=== PATIENT | male | born 1990 | race Caucasian/White ===

== ENCOUNTER 2021-04-09 07:45 | Inpatient (IN) | payer MEDICAID, SELFPAY ==
[2021-04-09 07:54] VITALS: BP 137/82; PULSE 75; RESP 18; TEMP 36.6; O2SAT 100; BMI 27.1
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
[2021-04-09 09:15] LABS: Basophils # 0.1 10^3/uL (0.0-0.1); Basophils % 0.7 %; Eosinophils % 0.4 %; Hematocrit 41.6 % (42.0-52.0); Hemoglobin 13.9 g/dL (11.7-16.6); Lymphocytes # 1.9 10^3/uL (0.8-4.8); Lymphocytes % 21.3 %; Mean Corpuscular HGB Conc 33.4 g/dL (30.0-36.0); Mean Corpuscular Volume 92.9 fl (80-94); Mean Platelet Volume 9.6 fL (7.4-10.4); Monocytes # 0.7 10^3/uL (0.2-0.9); Monocytes % 7.2 %; Neutrophils # 6.28 10^3/uL (1.8-7.7); Neutrophils % 70.1 %; Nucleated Red Blood Cells % 0 %; Platelet Count 263 10^3/cmm (130-400); Red Blood Count 4.48 10^6/uL (4.1-5.3)
[2021-04-09 09:38] LABS: Anion Gap 11.7 (5-19); Blood Urea Nitrogen 23 mg/dL (6-20); Calcium 8.3 mg/dL (8.5-10.5); Carbon Dioxide 23 mmol/L (22-29); Chloride 105 mmol/L (98-107); Glomerular Filtration Rate 113.5 mL/min (90-130); Glucose 94 mg/dL (65-115); Osmolality Calculated 285 mOsm/kg (285-295); Potassium 3.7 mmol/L (3.5-5.1); Salicylate 0.5 mg/dL (3-10); Sodium 136 mmol/L (136-145)
[2021-04-09 09:42] LABS: Acetaminophen < 5.0 ug/mL (10-30)
[2021-04-09 12:38] VITALS: BP 123/70; PULSE 82; RESP 14; TEMP 36.8; O2SAT 98
[2021-04-09 12:43] VITALS: BP 123/70; PULSE 82; RESP 14; TEMP 36.8
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
--- NOTE | 2021-04-09 13:52 | P.SS_ITS ---
Short Stay Summary Providers Date of Admit/Discharge: 04/11/21 Attending Provider: Miguel Gonzalez MD Primary Care Provider: Michael Ferrer Chief Complaint: SI Home Meds/Allergies Home Medications and Allergies Home Medications Medication Instructions Recorded Confirmed Type No Known Home Medications 04/09/21 04/09/21 History Allergies Allergy/AdvReac Type Severity Reaction Status Date / Time No Known Allergies Allergy Unverified 04/09/21 09:40 Vitals/I&O/Wt Last Vital Signs Temp 98.2 F 04/09/21 12:43 Pulse 82 04/09/21 12:43 Resp 14 04/09/21 12:43 BP 123/70 04/09/21 12:43 Pulse Ox 98 04/09/21 12:38 Weight last 48 hrs Weight 88.451 kg Diagnoses at Discharge Discharge Diagnosis (1) Adjustment disorder with depressed mood: Status: Acute (2) Chronic schizoaffective disorder: Status: Chronic Discharge Plan Discharge Patient Disposition: Home Condition: Stable Prescriptions: No Action No Known Home Medications RF: 0 Referrals: [facility] [Other] - 7-10 days (Call to schedule an initial appointment to establish care. ) Michael Ferrer MD [Primary Care Provider] - Patient Instructions: Opioid Safety Coding Level of Care Code Acute Production Designer for g Fwd Diagnoses Adjustment disorder with depressed mood F43.21 Chronic schizoaffective disorder F25.9
[2021-04-09 17:45] VITALS: BP 121/72; PULSE 75; RESP 18; TEMP 36.4; O2SAT 99
[2021-04-09 21:14] VITALS: RESP 18
[2021-04-10] MEDS: acetaminophen 325 mg Tablet 650 MG PO (07:19)
[2021-04-10 14:00] VITALS: BP 114/66; PULSE 72; RESP 16; TEMP 36.2; O2SAT 100
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
[2021-04-10 20:54] VITALS: BP 95/59; PULSE 76; RESP 20; TEMP 36.6; O2SAT 99
[2021-04-11 02:39] LABS: THC Screen Urine Positive (Negative)
[2021-04-11 02:40] LABS: Amphetamines Screen Urine Positive (Negative); Barbiturates Screen Urine Negative (Negative); Benzodiazepines Screen Urine Negative (Negative); Cocaine Screen Urine Negative (Negative); Opiate Screen Urine Negative (Negative); PCP Screen Urine Negative (Negative)
[2021-04-11] MEDS: acetaminophen 325 mg Tablet 650 MG PO ×2 (04:26→14:05)
[2021-04-11 06:00] VITALS: BP 103/74; PULSE 98; RESP 20; TEMP 36.8; O2SAT 98
[2021-04-11 09:07] VITALS: BP 103/74; PULSE 98; RESP 20; TEMP 36.8; O2SAT 98
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
== END 2021-04-11 14:20 | disposition home or self-care (01) | DRG 885 ==
LOC: ER 11:27 → NP 11:41
PROVIDERS: Admitting Provider Psychiatry & Neurology Child & Adolescent Psychiatry; Emergency Provider Emergency Medicine; PCP Family Medicine; Visit Provider Psychiatry & Neurology Child & Adolescent Psychiatry
DX: F25.9 Schizoaffective disorder, unspecified (principal); R45.851 Suicidal ideations; F32.9 Major depressive disorder, single episode, unspecified; F43.21 Adjustment disorder with depressed mood; F17.210 Nicotine dependence, cigarettes, uncomplicated
CPT/HCPCS: 80048; 80306; 80307; 85025; 99285; G0378

== ENCOUNTER 2022-03-02 01:02 | Inpatient (IN) | payer MEDICAID, SELFPAY ==
--- NOTE | 2022-03-02 01:11 | W.ED.PSYCHS ---
HPI - Psych General: Chief Complaint: Psychiatric Symptoms Stated Complaint: general Time Seen by Provider: 03/02/22 01:03 Source: patient and police Mode of arrival: other (police) Limitations: no limitations History of Present Illness: 31-year-old male brought here by police for acute psychosis. Patient was trying to break into cars in a house tonight that he thought was his but was not. Patient appears to be under the influence of methamphetamine does have a history of drug abuse. Patient has flight of ideas here are very pressured speech and makes no sense when he is speaking. He denies any injuries no other medical complaints at this time he is not suicidal or homicidal Associated symptoms: Reports visual hallucinations and delusions Review of Systems Const: Denies: fever(s), chills, body aches or change in appetite Eyes: Denies: blurry vision or eye discomfort ENMT: Denies: throat pain or dental pain Card: Denies: chest pain Resp: Denies: dyspnea GI: Denies: abdominal pain, nausea, vomiting or diarrhea : Denies: dysuria Musc: Denies: neck pain or back pain Skin/Breast: Denies: rash Neuro: Denies: headache(s) Psych: Reports: difficulty concentrating and visual hallucinations Ward/Lymph: Denies: easy bruising All/Imm: Denies: urticaria PFSH ED PFSH: Medical History (Updated 03/02/22 @ 03:30 by Noel Roe MD) Chronic schizoaffective disorder Social History (Updated 03/02/22 @ 01:12 by Noel Roe MD) Substance/Drug Use: current Physical Exam Const: COMMON NORMALS: patient oriented x3 GENERAL APPEARANCE: anxious and disheveled HENMT: COMMON NORMALS: normocephalic and atraumatic HEAD & SCALP: normocephalic and atraumatic Eye: COMMON NORMALS: Equal, round and reactive pupils present and EOMs intact bilaterally PUPIL: Yes Equal, round and reactive pupils present Neck/C-Spine: COMMON NORMALS: full ROM and supple Chest: COMMONS NORMALS: normal inspection of the chest and normal palpation of entire chest wall Resp: COMMON NORMALS: normal respiratory effort, No retractions, No use of accessory muscles and clear to auscultation bilaterally AUSCULTATION: clear to auscultation bilaterally Cardio: COMMON NORMALS: regular rate, regular rhythm and No murmurs present (Cardio) RATE: regular rate RHYTHM: regular rhythm GI: COMMON NORMALS: Normal to inspection, nondistended, normoactive bowel sounds present, Soft to palpation, non-tender and no masses PALPATION: Yes Soft to palpation Extremity: COMMON NORMALS: normal to inspection and full ROM Neuro: COMMON NORMALS: patient oriented x3, moves all extremities and no focal motor deficits Psych: ACTIVITY/MOTOR BEHAVIOR: Yes psychomotor agitation SPEECH: Yes rapid MOOD & AFFECT: Yes anxious THOUGHT CONTENT: Yes delusions and Yes Hallucination(s) present Skin: COMMON NORMALS: no rashes or lesions noted and no wounds GENERAL SKIN EXAM: no rashes or lesions noted Course Vital Signs: Vital signs: Vital Signs Pulse Rate 89 03/02/22 03:25 Respiratory Rate 16 03/02/22 03:25 Blood Pressure 131/74 03/02/22 03:25 Pulse Oximetry 99 03/02/22 03:25 Oxygen Delivery Me thod 03/02/22 03:25 MDM - Psych Medical Decision Making Patient presents here with acute psychosis likely drug-induced I spoke to psychiatrist patient is medically cleared and will admit at this time. Lab Data : 03/02/22 02:00 03/02/22 02:00 Laboratory Results WBC 12.6 10^3/uL (4.0-10.0) H 03/02/22 02:00 RBC 4.18 10^6/uL (4.1-5.3) 03/02/22 02:00 Hgb 13.0 g/dL (11.7-16.6) 03/02/22 02:00 Hct 39.2 % (42.0-52.0) L 03/02/22 02:00 MCV 93.8 fl (80-94) 03/02/22 02:00 MCH 31.1 pg (28.0-34.0) 03/02/22 02:00 MCHC 33.2 g/dL (30.0-36.0) 03/02/22 02:00 RDW 12.4 % (12.1-15.1) 03/02/22 02:00 Plt Count 283 10^3/cmm (130-400) 03/02/22 02:00 MPV 10.0 fL (7.4-10.4) 03/02/22 02:00 Neut % (Auto) 84.6 % 03/02/22 02:00 Lymph % (Auto) 9.4 % 03/02/22 02:00 [place] % (Auto) 4.9 % 03/02/22 02:00 Eos % (Auto) 0.1 % 03/02/22 02:00 Baso % (Auto) 0.5 % 03/02/22 02:00 Neut # (Auto) 10.66 10^3/uL (1.8-7.7) H 03/02/22 02:00 Lymph # (Auto) 1.2 10^3/uL (0.8-4.8) 03/02/22 02:00 [place] # (Auto) 0.6 10^3/uL (0.2-0.9) 03/02/22 02:00 Eos # (Auto) 0.0 10^3/uL (0.0-0.8) 03/02/22 02:00 Baso # (Auto) 0.1 10^3/uL (0.0-0.1) 03/02/22 02:00 Nucleated RBC % (auto) 0 % 03/02/22 02:00 Nucleated RBCs # 0.0 /100WBC 03/02/22 02:00 Sodium 149 mmol/L (136-145) H 03/02/22 02:00 Potassium 3.8 mmol/L (3.5-5.1) 03/02/22 02:00 Chloride 113 mmol/L (98-107) H 03/02/22 02:00 Carbon Dioxide 24 mmol/L (22-29) 03/02/22 02:00 Anion Gap 15.8 (5-19) 03/02/22 02:00 BUN 29 mg/dL (6-20) H 03/02/22 02:00 Creatinine 1.3 mg/dL (0.7-1.2) H 03/02/22 02:00 GFR Calculation 64.4 mL/min (90-130) L 03/02/22 02:00 Glucose 92 mg/dL (65-115) 03/02/22 02:00 Calculated Osmolality 313 mOsm/kg (285-295) H 03/02/22 02:00 Calcium 9.6 mg/dL (8.5-10.5) 03/02/22 02:00 Total Bilirubin 1.1 mg/dL (0.15-1.2) 03/02/22 02:00 AST 68 U/L (0-40) H 03/02/22 02:00 ALT 59 U/L (0-41) H 03/02/22 02:00 Alkaline Phosphatase 85 IU/L (40-130) 03/02/22 02:00 Total Protein 7.0 g/dL (6.6-8.7) 03/02/22 02:00 Albumin 4.3 g/dL (3.5-5.2) 03/02/22 02:00 Globulin 2.7 g/dL (1.3-4.6) 03/02/22 02:00 Salicylates < 0.3 mg/dL (3-10) L 03/02/22 02:00 Acetaminophen < 5.0 ug/mL (10-30) L 03/02/22 02:00 Ethyl Alcohol < 10 mg/dL (0-10) 03/02/22 02:00 Discharge Plan Discharge Patient Disposition: Admitted As Inpatient Clinical Impression: Acute psychosis, Drug-induced psychotic disorder Coding Level of Care Code ED Salesperson Wigs for Dana Fwd Exam Comprehensive
[2022-03-02 01:22] VITALS: BMI 20.9
[2022-03-02] MEDS: midazolam 1 mg/mL INJ 2 mL 2 MG IM ×2 (02:09→03:02)
[2022-03-02 02:30] LABS: Basophils # 0.1 10^3/uL (0.0-0.1); Basophils % 0.5 %; Eosinophils % 0.1 %; Hematocrit 39.2 % (42.0-52.0); Lymphocytes # 1.2 10^3/uL (0.8-4.8); Lymphocytes % 9.4 %; Mean Corpuscular HGB Conc 33.2 g/dL (30.0-36.0); Mean Corpuscular Hemoglobin 31.1 pg (28.0-34.0); Mean Corpuscular Volume 93.8 fl (80-94); Monocytes # 0.6 10^3/uL (0.2-0.9); Monocytes % 4.9 %; Neutrophils # 10.66 10^3/uL (1.8-7.7); Neutrophils % 84.6 %; Nucleated Red Blood Cells % 0 %; Platelet Count 283 10^3/cmm (130-400); Red Blood Count 4.18 10^6/uL (4.1-5.3); Red Cell Distribution Width 12.4 % (12.1-15.1); White Blood Count 12.6 10^3/uL (4.0-10.0)
[2022-03-02] MEDS: ziprasidone 20 mg/mL SDV IM (03:03)
[2022-03-02 03:25] VITALS: BP 131/74; PULSE 89; RESP 16; O2SAT 99
[2022-03-02 03:28] LABS: Alanine Aminotransferase 59 U/L (0-41); Albumin Level 4.3 g/dL (3.5-5.2); Alkaline Phosphatase 85 IU/L (40-130); Anion Gap 15.8 (5-19); Aspartate Amino Transferase 68 U/L (0-40); Blood Urea Nitrogen 29 mg/dL (6-20); Calcium 9.6 mg/dL (8.5-10.5); Carbon Dioxide 24 mmol/L (22-29); Chloride 113 mmol/L (98-107); Globulin 2.7 g/dL (1.3-4.6); Glomerular Filtration Rate 64.4 mL/min (90-130); Glucose 92 mg/dL (65-115); Osmolality Calculated 313 mOsm/kg (285-295); Potassium 3.8 mmol/L (3.5-5.1); Sodium 149 mmol/L (136-145); Total Bilirubin 1.1 mg/dL (0.15-1.2)
[2022-03-02 03:31] LABS: Acetaminophen < 5.0 ug/mL (10-30); Alcohol Level < 10 mg/dL (0-10); Creatinine Clr Calc Pharmacy 84.3068; Salicylate < 0.3 mg/dL (3-10)
[2022-03-02 05:03] VITALS: BP 114/71; PULSE 73; RESP 15; O2SAT 99
--- NOTE | 2022-03-02 07:12 | PC.NURSE ---
Report from NIGHAT Osorio. Patient resting with eyes closed, sitter at bedside.
[2022-03-02 07:30] LABS: Amphetamines Screen Urine Positive (Negative); Barbiturates Screen Urine Negative (Negative); Benzodiazepines Screen Urine Negative (Negative); Cocaine Screen Urine Negative (Negative); Opiate Screen Urine Negative (Negative); PCP Screen Urine Negative (Negative); THC Screen Urine Positive (Negative)
[2022-03-02 07:58] VITALS: BP 120/59; PULSE 84; RESP 18; O2SAT 99
--- NOTE | 2022-03-02 12:11 | PC.NURSE ---
Report called to NIGHAT Sanders. Patient changed out into paper scrubs and escorted to floor with tech and security.
[2022-03-02 13:08] VITALS: BP 125/60; PULSE 106; RESP 18; TEMP 36.8; O2SAT 98
--- NOTE | 2022-03-02 13:09 | XR_ITS ---
WS: [id number] Exam: XR foot LT min 3V* [id number] Date/Time of Exam: 03/02/2022 1:09 PM Reason For Exam: Patient states pain and injury. Findings: The foot was examined in multiple views and reveals no fractures or displacements of bone. No bony a nomalies are noted. The bony elements are in adequate alignment. The joint spaces are smooth and eq uidistant. XR/XR foot LT min 3V* [id number] IMPRESSION: Negative left foot.
[2022-03-02 14:00] VITALS: BP 125/60; PULSE 106; RESP 18; TEMP 36.8; O2SAT 98
[2022-03-02] MEDS: OLANZapine 5 mg ODT PO (15:07)
[2022-03-02] MEDS: haloperidol inj 5 mg/mL INJ 1 mL IM (16:40)
[2022-03-02] MEDS: diphenhydrAMINE 50 mg/mL SDV 1mL IM (16:41)
[2022-03-02] MEDS: LORazepam 2 mg/mL INJ 1 mL IM (16:41)
[2022-03-02 20:20] VITALS: RESP 16
--- NOTE | 2022-03-02 20:20 | PC.NURSE ---
patient refused vitals..
[2022-03-03 06:00] VITALS: BP 158/86; PULSE 78; RESP 20; TEMP 36.5; O2SAT 91
[2022-03-03] MEDS: acetaminophen 325 mg Tablet 650 MG PO (08:50)
[2022-03-03] MEDS: hyDROXYzine 25 mg Capsule 50 MG PO (08:51)
--- NOTE | 2022-03-03 10:10 | PC.NURSE ---
INM BED RESTING AROUSES TO VOICE. PT STATES HE IS HAVING BACK PAIN /, TYLENOL WAS GIVEN ORDERED. PT WAS GIVEN VISTARIL 50 MG FOR AXIETY. DENIES SI/HI AND AVH AT THIS. PT PRESENTS WITH DEPRESSED AND FLAT AFFECT. ALL QUESTIONS ANSWERED AND SUPPORT VOICED.
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
[2022-03-03] MEDS: OLANZapine 5 mg ODT PO (11:21)
[2022-03-03 14:00] VITALS: BP 136/72; PULSE 76; RESP 16; TEMP 36; O2SAT 98
[2022-03-03] MEDS: haloperidol 5 mg Tablet PO (16:56)
--- NOTE | 2022-03-03 16:56 | PC.NURSE ---
PRN MEDICATIONS PT AT [facility] REQUESTING THAT SHOT THEY GAVE ME YESTERDAY, IT WAS GOOD. EDUCATION PROVIDED THAT THE SHOT IS FOR EMERGENCY USE ONLY BUT THIS RN WOULD BE HAPPY TO GET HIM SOMETHING ELSE FOR ANXIETY. PT HAS RECEIVED VISTARIL AND ZYDIS EARLIER THROUGH THE SHIFT. ADMINISTERED HALDOL 5 MG ORDERED FOR INCREASED ANXIETY AND AGITATION.
[2022-03-03 20:11] VITALS: BP 114/61; PULSE 80; RESP 14; TEMP 36.6; O2SAT 100
--- NOTE | 2022-03-04 00:27 | PC.NURSE ---
Pt awake at this time requesting a snack. He is also c/o a buring and itching rash to inner aspect of left upper arm and left side of upper chest, Pt believe this to be poison leo Hospitalist was informed, she will see Pt in the morning. A consult order was placed as well.
--- NOTE | 2022-03-04 05:55 | W.PM.NPUPNS ---
Subjective NPU Subjective: Patient presents today continuing to the resistant to interview and resistant to participating in this process. He continues to report that we have no grounds or right to hold him and that he wants to leave. We discussed him having a different doctor tomorrow but that the process would not change any be to participate in evaluation for safety for discharge from his 96-hour hold. Mental Status Exam MSE Comments: This is a well-nourished well-developed white male in hospital scrubs with adequate grooming and limited eye contact. No abnormal movements except for mild psychomotor agitation. Uncooperative with exam in mild distress. Speech was normal rate and volume. Mood described as OK, affect irritable. Thought process organized, thought content: patient denies suicidal or homicidal ideation, there were no delusions reported or but paranoid and persecutory delusions noted or at the very least referential ideas around these thoughts, he denied any auditory or visual hallucinations. Attention and concentration were intact and memory appeared unreliable and likely on purpose, but none were formally tested. He?s alert and oriented times person and place. Insight and judgment appeared impaired and impulse control appeared limited versus impaired Vitals/I&O/Wt Last Vital Signs Temp 97.8 F 03/03/22 20:11 Pulse 80 03/03/22 20:11 Resp 14 03/03/22 20:11 BP 114/61 03/03/22 20:11 Pulse Ox 100 03/03/22 20:11 O2 Del Method 03/03/22 14:00 Data NPU : 03/02/22 02:00 03/02/22 02:00 A&P Assessment and plan (1) Acute psychosis: Status: Acute (2) Drug-induced psychotic disorder: Status: Acute (3) Chronic schizoaffective disorder: Status: Chronic (4) Methamphetamine use disorder, severe: Status: Acute (5) Cannabis use disorder: Status: Acute Plan This is a 31-year-old white male with a significant history of addiction and psychosis likely drug-induced as well as aggression who presented to the hospital on a 96-hour hold but is essentially resistant to treatment and interactions. 1. Continue current medication. We will explore previous medications and try to engage about starting medication to help with psychosis and irritability. 2. Continue every 15 minute checks for safety. 3. Encourage individual, group and milieu therapies. 4. Encourage sober living treatment after discharge at the highest level of care to which he is willing to commit. 5. We will monitor for safety for consideration of early discontinuation of the 96-hour hold. Involuntary Hold Information 96 Hour Hold: 96 Hour Involuntary Admission: Yes 96 Hour Hold Ending Date: 03/08/22 96 Hour Hold Ending Time: 12:30 Attestations NPU Medical Necessity Statement*: Inpatient hospitalization is medically necessary and the clinically appropriate intervention at this time. We will monitor medication to make changes as indicated. Likely length of stay 2-4 days. Coding Level of Care Code Acute Mold Repair Technician for [facility] Fwd Diagnoses Acute psychosis F23 Drug-induced psychotic disorder F19.959 Chronic schizoaffective disorder F25.9 Methamphetamine use disorder, severe F15.20 Cannabis use disorder F12.90
[2022-03-04 06:00] VITALS: BP 133/80; PULSE 83; RESP 16; TEMP 36.6; O2SAT 100
--- NOTE | 2022-03-04 07:22 | P.CONIM_ITS ---
Providers/Reason For Consult Consulting Physician/Specialty*: Eliazar Wesley MD Reason for Consult*: generalized rash Requesting Physician: Dr. Eber Cuevas Attending Physician: Eber Cuevas MD Primary Care Provider: Michael Ferrer History of Present Illness History of Present Illness Eric Ramsay is a 31 year old male currently [facility] for acute psychosis and polysubstance abuse. Medicine services consulted because of a generalized maculopapular rash that he has noted all over his body. Patient st ates that the rash started 3 to 4 days prior to admission and is still present. It is itchy. He reports that he got into some poison leo prior to onset of the rash. He is afebrile. Denies any other symptoms such as fever cough chest pain dyspnea palpitations nausea vomiting or diarrhea. No joint swelling or tenderness. No headache, photophobia or neck stiffness. Review of Systems General: Reports: 10 or more systems reviewed and unremarkable except in HPI and below Const: Denies: fever(s), chills, body aches, change in appetite, change in weight, malaise, night sweats, diaphoresis, change in sleep pattern, daytime sleepiness or snoring Eyes: Denies: change in vision, blurry vision, photophobia, eye discomfort or eye discharge ENMT: Denies: throat pain, enlarged tonsils, hoarseness, mouth pain, oral sores, dry mouth, tinnitus, nasal congestion or post nasal drip Card: Denies: chest pain, palpitations, irregular heart rhythm, edema, swelling of feet/ankles, lightheadedness, syncope, pre-syncope, dyspnea on exertion, orthopnea, leg pain with exertion or acrocyanosis Resp: Denies: dyspnea, productive cough, non-productive cough, wheezing, stridor, pain on inspiration, change in phlegm color, hemoptysis or chest congestion GI: Denies: abdominal pain, nausea, vomiting, hematemesis, coffee ground emesis, dysphagia, heartburn, diarrhea, constipation, bloating, GI cramping, change in bowel habits, pain on defecation, hematochezia or melena : Denies: flank pain, difficulty urinating, dysuria, urinary frequency, urinary urgency, urinary hesitancy, urinary dribbling, difficulty starting urination, change in urine stream, nocturia or hematuria Musc: Denies: neck pain, back pain, extremity pain, joint pain, joint swelling, joint redness, joint stiffness or limited range of motion Neuro: Denies: headache(s), numbness in extremities, weakness in extremities, sensory changes, lack of coordination, difficulty walking, frequent falls, dizziness, vertigo, confusion, Slurred speech present, difficulty communicating thoughts or seizure-like activity Psych: Denies: anxiety, depression, mood swings, panic attacks, hopelessness or irritability Endo: Denies: polyuria, polydipsia, tired all the time, cold intolerance, excessive sweating, flushing or heat intolerance Ward/Lymph: Denies: easy bruising or easy bleeding All/Imm: Denies: tongue swelling, facial swelling or acute wheezing Medications/Allergies Home Medications Medication Instructions Recorded Confirmed Last Taken Type Soma 250 mg PO DAILY PRN Muscle Spasm 03/02/22 03/02/22 Unknown History Thorazine 100 mg PO DAILY 03/02/22 03/02/22 Unknown History clonazepam 1 mg tablet (Klonopin) 1 mg PO 1XD 03/02/22 03/02/22 Unknown History Allergies Allergy/AdvReac Type Severity Reaction Status Date / Time No Known Allergies Allergy Verified 03/02/22 08:54 Current Medications Generic Name Dose Route Start Last Admin Trade Name Daveq PRN Reason Stop Dose Admin Acetaminophen 650 mg 03/02/22 13:08 03/03/22 08:50 Acetaminophen 325 Mg Tablet PO 650 mg Q4H PRN Administration MILD PAIN Diphenhydramine HCl 50 mg 03/02/22 13:08 03/02/22 16:41 Diphenhydramine 50 Mg/Ml Sdv 1ml IM 50 mg Q4H PRN Administration Severe Aggression Haloperidol 5 mg 03/02/22 13:08 03/03/22 16:56 Haloperidol 5 Mg Tablet PO 5 mg Q4H PRN Administration AGITATION Haloperidol Lactate 5 mg 03/02/22 13:08 03/02/22 16:40 Haloperidol Inj 5 Mg/Ml Inj 1 Ml IM 5 mg Q4H PRN Administration Severe Aggression Hydroxyzine Pamoate 50 mg 03/02/22 13:08 03/03/22 08:51 Hydroxyzine 25 Mg Capsule PO 50 mg Q6H PRN Administration ANXIETY Lorazepam 2 mg 03/02/22 13:08 03/02/22 16:41 Lorazepam 2 Mg/Ml Inj 1 Ml IM 2 mg Q4H PRN Administration Severe Aggression Olanzapine 5 mg 03/02/22 13:08 03/03/22 11:21 Olanzapine 5 Mg Odt PO 5 mg Q4H PRN Administration Agitation/Psychosis PFSH Acute PFSH: Medical History Chronic schizoaffective disorder Social History Smoking and tobacco status: current every day smoker Substance/Drug Use: current Vitals/I&O/Wt Last Vital Signs Temp 98 F 03/04/22 06:00 Pulse 83 03/04/22 06:00 Resp 16 03/04/22 06:00 BP 133/80 03/04/22 06:00 Pulse Ox 100 03/04/22 06:00 O2 Del Method 03/03/22 14:00 Weight last 48 hrs Weight 80.83 kg Physical Exam Narrative: EXAM NARRATIVE: General: No acute distress, AO x3 HEENT: PERRLA, pupils bilaterally equal and reactive Chest:equal good air entry bilaterally, CVS: S1-S2 regular, no murmurs, no tachycardia, no gallops, no rubs Abdomen: Soft, nontender, no organomegaly, bowel sounds present, morbidly obese Neuro: No focal deficits, no facial deformity, AO x3, power 5/5 in all limbs Extremities: Maculopapular rash present over anterior chest, back, bilateral upper extremities and right lower extremity. Patient noted to be itching over this rash. Data : 03/02/22 02:00 03/02/22 02:00 A&P Assessment and plan (1) Dermatitis: Appearance of the itchy rash, lack of constitutional signs and symptoms, being afebrile, history of getting into poison leo appeared to be most consistent with poison leo dermatitis. Trial of a short course of prednisone 20 mg p.o. daily for 5 days and monitor for continued improvement. Less suspicious of tickborne illness at this time. Please call if no significant improvement and/or clinical deterioration is noted with a trial of steroids. Status: Acute Consult Attestations Medical Necessity Statement: Per admitting psychiatry note Coding Level of Care Code Acute Analytical Data Miner for g Fwd Diagnoses Dermatitis L30.9
[2022-03-04] MEDS: hyDROXYzine 25 mg Capsule 50 MG PO ×3 (09:27→23:03)
[2022-03-04] MEDS: predniSONE 20 mg Tablet PO (09:27)
[2022-03-04 14:00] VITALS: BP 124/76; PULSE 96; RESP 18; TEMP 36.8; O2SAT 98
[2022-03-04] MEDS: diphenhydrAMINE 50 mg/mL SDV 1mL IM (18:29)
[2022-03-04 21:00] VITALS: BP 134/55; PULSE 73; RESP 17; TEMP 36.7; O2SAT 99
[2022-03-04] MEDS: trazodone 50 mg Tablet PO (23:04)
--- NOTE | 2022-03-04 23:04 | NUR.SHIFT ---
pt calm and cooperative. A&OX4. DENIES SI/HI/AVH AT THIS TIME. PT HAS RASH OVER FULL TORSO, LEGS AND ARMS. STARTED ON PREDNISONE THIS MORNING AND STATES IT IS A LITTLE BETTER BUT IT IS STARTING TO ITCH AGAIN. PRN VISTARIL GIVEN.
[2022-03-05 06:00] VITALS: BP 117/61; PULSE 69; RESP 16; TEMP 36.6; O2SAT 99
[2022-03-05] MEDS: predniSONE 20 mg Tablet PO (09:33)
[2022-03-05] MEDS: hyDROXYzine 25 mg Capsule 50 MG PO ×2 (09:53→16:34)
[2022-03-05 13:23] VITALS: BP 126/72; PULSE 81; RESP 17; TEMP 36.6; O2SAT 98
--- NOTE | 2022-03-05 14:33 | W.PM.NPUPNS ---
Subjective NPU Subjective: Patient is a 31 year old white male presents on 96 with acute agitation and hx of schizophrenia who continued to be insistent about returning home and states that he simply wishes to go home now that he is evaluated, Patient did not wish to consider any medication to treat anger and irritability but requested soma and klonopin. Mental Status Exam MSE Comments: This is a well-nourished well-developed white male in hospital scrubs with adequate grooming and limited eye contact. No abnormal movements with brooding and continued palpable psychomotor agitation. Uncooperative with exam in mild distress. Speech was normal rate and volume. Mood described as OK, affect irritable and mood incongruent. Thought process : superficial, but linear. thought content: patient denies suicidal or homicidal ideation, but he appeared quite paranoid, he denied any auditory or visual hallucinations. Attention and concentration were intact and memory appeared deliberately poor. He?s alert and oriented times person and place. Insight and judgment appeared impaired and impulse control appeared impaired. Vitals/I&O/Wt Last Vital Signs Temp 98.1 F 03/05/22 20:33 Pulse 78 03/05/22 20:33 Resp 18 03/05/22 20:33 BP 127/86 03/05/22 20:33 Pulse Ox 99 03/05/22 20:33 O2 Del Method 03/05/22 13:23 Weight last 48 hrs Weight 80.83 kg Data NPU : 03/02/22 02:00 03/02/22 02:00 A&P Assessment and plan (1) Acute psychosis: Status: Acute (2) Drug-induced psychotic disorder: Status: Acute (3) Chronic schizoaffective disorder: Status: Chronic (4) Methamphetamine use disorder, severe: Status: Acute (5) Cannabis use disorder: Status: Acute Plan This is a 31-year-old white male with a significant history of addiction and psychosis likely drug-induced as well as aggression who presented to the hospital on a 96-hour hold but is essentially resistant to treatment and interactions. 1. We will explore previous medications and try to engage about starting medication to help with psychosis and irritability. zyprexa prn for agitation. 2. Continue every 15 minute checks for safety. 3. Encourage individual, group and milieu therapies. 4. Encourage sober living treatment after discharge at the highest level of care to which he is willing to commit. 5. We will monitor for safety for consideration of early discontinuation of the 96-hour hold. Involuntary Hold Information 96 Hour Hold: 96 Hour Involuntary Admission: Yes 96 Hour Hold Ending Date: 03/08/22 96 Hour Hold Ending Time: 12:30 Attestations NPU Medical Necessity Statement*: Inpatient hospitalization is medically necessary and the clinically appropriate intervention at this time. We will monitor medication to make changes as indicated. Likely length of stay 3-5 days. 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
[2022-03-05] MEDS: nicotine 2 mg Gum BUCCAL (16:15)
[2022-03-05 20:33] VITALS: BP 127/86; PULSE 78; RESP 18; TEMP 36.7; O2SAT 99
[2022-03-05] MEDS: trazodone 50 mg Tablet PO ×2 (20:53→22:37)
[2022-03-06 06:00] VITALS: BP 126/76; PULSE 98; RESP 18; TEMP 36.9; O2SAT 97
[2022-03-06] MEDS: OLANZapine 5 mg ODT 10 MG PO ×2 (06:15→16:44)
[2022-03-06] MEDS: predniSONE 20 mg Tablet PO (10:13)
[2022-03-06] MEDS: diphenhydrAMINE 50 mg/mL SDV 1mL IM (13:55)
[2022-03-06 14:00] VITALS: BP 128/87; PULSE 93; RESP 16; TEMP 36.6; O2SAT 98
--- NOTE | 2022-03-06 14:15 | W.PM.NPUPNS ---
Subjective NPU Subjective: Patient is a 31 year old white male presents on 96 with acute agitation and hx of psychosis and reports that he is no longer suicidal or homicidal and is not having any hallucinations. Patient reports no depressed mood, no manic symptoms endorsed. He reports that he will call his adult probation officer when he is discharged. He has been redirectable and attending groups. No acts of aggression noted. Mental Status Exam MSE Comments: This is a well-nourished well-developed white male in hospital scrubs with adequate grooming and limited eye contact. No abnormal movements noted and continued palpable psychomotor agitation. Uncooperative with exam in mild distress. Speech was normal rate and volume. Mood described as OK, affect irritable and mood incongruent. Thought process : superficial, but linear. thought content: patient denies suicidal or homicidal ideation, but he appeared quite paranoid, he denied any auditory or visual hallucinations. Attention and concentration were intact and memory appeared deliberately poor. He?s alert and oriented times person and place. Insight was feeble and judgment appeared impaired and impulse control appeared poor. Vitals/I&O/Wt Last Vital Signs Temp 97.9 F 03/06/22 19:52 Pulse 82 03/06/22 19:52 Resp 21 H 03/06/22 19:52 BP 117/62 03/06/22 19:52 Pulse Ox 98 03/06/22 19:52 O2 Del Method 03/06/22 19:52 Data NPU : 03/02/22 02:00 03/02/22 02:00 A&P Assessment and plan (1) Impulse control disorder: Status: Acute (2) Antisocial personality disorder: Status: Acute (3) Methamphetamine use disorder, severe: Status: Acute (4) Acute psychosis: Status: Acute (5) Drug-induced psychotic disorder: Status: Acute (6) Chronic schizoaffective disorder: Status: Chronic (7) Cannabis use disorder: Status: Acute Plan This is a 31-year-old white male with a significant history of addiction and psychosis likely drug-induced as well as aggression who presented to the hospital on a 96-hour hold but is essentially resistant to treatment and interactions. 1. Likely refer for outpatient tx. 2. Continue every 15 minute checks for safety. 3. Encourage individual, group and milieu therapies. 4. Encourage sober living treatment after discharge at the highest level of care to which he is willing to commit. 5. We will monitor for safety for consideration of early discontinuation of the 96-hour hold. Involuntary Hold Information 96 Hour Hold: 96 Hour Involuntary Admission: Yes 96 Hour Hold Ending Date: 03/08/22 96 Hour Hold Ending Time: 12:30 Attestations NPU Medical Necessity Statement*: Inpatient hospitalization is medically necessary and the clinically appropriate intervention at this time. We will monitor medication to make changes as indicated. Likely length of stay 1-2days. 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
[2022-03-06] MEDS: hydrocortisone 1% cream 28 gm 1 APPLIC TOPICAL (14:58)
[2022-03-06] MEDS: acetaminophen 325 mg Tablet 650 MG PO (17:14)
[2022-03-06 19:52] VITALS: BP 117/62; PULSE 82; RESP 21; TEMP 36.6; O2SAT 98
[2022-03-06] MEDS: trazodone 50 mg Tablet PO (21:01)
[2022-03-06] MEDS: hyDROXYzine 25 mg Capsule 50 MG PO (21:01)
--- NOTE | 2022-03-06 21:32 | PC.NURSE ---
PT PRESENTS CALM AND COOPERATIVE SINCE MOVED TO 170. PT WAS HOT IN PREVIOUS ROOM AND BECAME IRRITABLE. ONCE HE WAS MOVED, HE WAS VERY GRATEFUL AND FRIENDLY. PT REPORTS STILL ITCHY FROM RASH, BUT IT IS DOING MUCH BETTER. NOT ITCHY BEFORE. DENIES SI/HI/AVH AT [facility]. REPORTS BM TODAY AND GOOD APPETITE AND SLEEP PATTERN. PT TOOK MEDS PRESCRIBED AND PRN GIVEN FOR SLEEP AND ANTIHISTAMINE FOR RASH .
--- NOTE | 2022-03-06 22:45 | PC.NURSE ---
2300 OLANZAPINE NOT ADMINISTERED BECAUSE IT STATES NOT TO EXCEED 20 MG DAILY DOSE AND THIS DOSE WOULD HAVE MADE IT 30 MG.
[2022-03-07 06:00] VITALS: BP 105/66; PULSE 99; RESP 20; TEMP 36.6; O2SAT 99
[2022-03-07] MEDS: OLANZapine 5 mg ODT 10 MG PO ×2 (07:04→14:19)
[2022-03-07] MEDS: predniSONE 20 mg Tablet PO (08:46)
[2022-03-07 14:00] VITALS: BP 121/68; PULSE 98; RESP 16; TEMP 36.7; O2SAT 98
--- NOTE | 2022-03-07 15:34 | P.NPUDS_ITS ---
Diagnoses at Discharge Discharge Diagnosis (1) Impulse control disorder: Status: Acute (2) Antisocial personality disorder: Status: Acute (3) Methamphetamine use disorder, severe: Status: Resolved (4) Acute psychosis: Status: Resolved (5) Drug-induced psychotic disorder: Status: Resolved (6) Chronic schizoaffective disorder: Status: Chronic (7) Cannabis use disorder: Status: Acute Reason for Visit Reason for Visit: suicidal ideation Brief History: Eric Ramsay is a 31 year old male who presented to the ED with the following report: Chief Complaint: Psychiatric Symptoms Stated Complaint: general Time Seen by Provider: 03/02/22 01:03 Source: patient and police Mode of arrival: other (police) Limitations: no limitations History of Present Illness:?? 31-year-old male brought here by police for acute psychosis.? Patient was trying to break into cars in a house tonight that he thought was his but was not.? Patient appears to be under the influence of methamphetamine does have a history of drug abuse.? Patient has flight of ideas here are very pressured speech and makes no sense when he is speaking.? He denies any injuries no other medical complaints at this time he is not suicidal or homicidal Associated symptoms: Reports visual hallucinations and delusions. He was admitted to the neuropsychiatric unit for definitive treatment of those issues.? He presents today continuing the general gestalt of his first hours of admission and emergency room time with irritability and lack of willingness to engage.? Very entitled and narcissistic as he sat down in his room and tries to convince the nurses that he is incapable of getting things himself tried having brought to him and suggesting that there is not a problem.? I attempted to engage noting that he had been on this unit back in April of last year and he endorsed that he did not recall the events of that admission.? Discussed with him that he is on a 96-hour hold which reports he felt was unfair to justified in a attempt by for the police to prevent him from establishing that they are corrected.? I explained to him the process by which the 96-hour hold gives discharge especially with going to be before their hold is up.? He continued not to engage with them as I was leaving the room he suggested a daily he should start his old medication which include Klonopin and Soma.? Discussed the fact that we would review his history and see if previous medications would be appropriate. Per his 04/09/2021 [facility] inpatient psychiatric evaluation: History of Present Illness Eric Ramsay is a 30 year old male with schizoaffective disorder who has had recent depression with passive suicidal ideation after his girlfriend kicked him out of their RV.? The ED note states: [30]yo patient w/ hx of depression and bipolar disorder BIBA for acute suicidal ideation. Patient was kicked out of RV by his girlfriend. He has been living in the [facility] since. Patient reports he lost os his will to live. Denies any suicidal plans. On arrival, the patient is AAOx3 and cooperative with my evaluation. No focal complaints of chest pain, shortness of breath, palpitations, N/V, focal GI/ complaints. +SI currently. No complaints of hallucinations. The patient says that he has been depressed off and on over the last few months, each time that he and his girlfriend have a fight.? He rates his average severity of depression as 2/10 in severity.? He said he became depressed in the past few days when his girlfriend and he drove to [place] to see one of her friends, but she kicked him out of the car.? He denies having felt suicidal.? He does not feel he would be better off .? He says he has never tried to kill himself.? He says he feels hopeful about the future, because it has a lot of possibilities. ? He is feeling good about himself and feels that he can make things happen, i.e., he does not feel helpless.? He said he wanted to come into the hospital a few hours ago, but now that he has had a chance to take a nap and eat a sandwich, he is feeling much better.? He has talked with his mother about staying with her in [place], [place].? She is willing for him to stay there.? He feels he can be safe at home and he wants to leave.? His plan is to go to work tomorrow and reconnect with his providers there. The patient denies auditory and visual hallucinations and says he has no paranoia or ideas of persecution.? He denies using alcohol and drugs and says he smokes about 1 pack of cigarettes per week.? He says he has been hospitalized here before several times.? It looks like his last admission was 08/27/2017, and the note from that visit states: Mr. Ramsay is a 26-year-old male with a previous history of schizoaffective disorder bipolar type, who presented to the [facility] ED with a complaint of suicidal ideation, along with worsening symptoms of depression, and agitation.? He denied experiencing hallucinations.? To admit to experiencing increased anxiety and sleep difficulties.? Patient has not taking his medications for the past week as reports that they were stolen.? He presented with suicidal thoughts with a plan to hang himself.? His symptom presentation was described as moderate. 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 UDS +THC.? As he presents today, he states that he essentially came to the hospital because he didn't have his meds. Would not be more specific about this. Reports some depressed mood, but denies suicidal ideation. No symptoms consistent with angelica, hypomania, or psychosis. Slept well last night. He is actually the most interactive I've seen in months. Psychiatric history: As above. Substance use history: As above. Family history: Patient denies mental health or addiction issues on either side of the family and denies suicide attempts or completions in the family. Psychosocial history: The patient says he grew up and has lived most of his life in [place].? He says he graduated from high school.? He has never been or had kids.? 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 Legal history:? No legal difficulties. Medical history:? Denies any significant medical history. Hospital Course Hospital Course During the hospitalization, patient had routine laboratory studies which were within normal limits except for few outliers.? Additionally there was a general medical evaluation which was also within normal limits and revealed no new acute processes. Discharge Summary: At the time of discharge, lethality was denied and psychosis was resolving.? Mood and anxiety were well managed.? Patient endorsed a plan to avoid all drugs of abuse and follow-up with the aftercare recommendations of the treatment team.? Patient was evaluated and deemed to be absent credible lethality, and had achieved the maximum benefit from an inpatient hospitalization, so was discharged as he refused medications throughout the hospital stay. Involuntary Hold Information 96 Hour Hold: 96 Hour Involuntary Admission: Yes 96 Hour Hold Ending Date: 03/08/22 96 Hour Hold Ending Time: 12:30 Mental Status Exam MSE Comments: This is a well-nourished well-developed white male in hospital scrubs with adequate grooming and limited eye contact. No abnormal movements noted and continued palpable psychomotor agitation. Uncooperative with exam in mild distress. Speech was normal rate and volume. Mood described as OK, affect irritable and mood incongruent. Thought process : superficial, but linear. thought content: patient denies suicidal or homicidal ideation, but he appeared quite paranoid, he denied any auditory or visual hallucinations. Attention and concentration were grossly intact. He?s alert and oriented times person and place. Insight was feeble and judgment appeared poor and impulse control appeared poor. Discharge Data Studies Completed and Pending: Completed Studies During Hospitalization Category Date Time Status XR foot LT min 3V * [id number] Routine Exams 03/02/22 13:09 Completed Radiology Impressions Foot X-Ray 03/02/22 13:09 IMPRESSION: Negative left foot. Laboratory Results WBC 12.6 10^3/uL (4.0 -10.0) H 03/02/22 02:00 RBC 4.18 10^6/uL (4.1 -5.3) 03/02/22 02:00 Hgb 13.0 g/dL (11.7-1 6.6) 03/02/22 02:00 Hct 39.2 % (42.0-52.0 ) L 03/02/22 02:00 MCV 93.8 fl (80-94) 03/02/22 02:00 MCH 31.1 pg (28.0-34. 0) 03/02/22 02:00 MCHC 33.2 g/dL (30.0-3 6.0) 03/02/22 02:00 RDW 12.4 % (12.1-15.1 ) 03/02/22 02:00 Plt Count 283 10^3/cmm (130 -400) 03/02/22 02:00 MPV 10.0 fL (7.4-10.4 ) 03/02/22 02:00 Neut % (Auto) 84.6 % 03/02/22 02:00 Lymph % (Auto) 9.4 % 03/02/22 02:00 [place] % (Auto) 4.9 % 03/02/22 02:00 Eos % (Auto) 0.1 % 03/02/22 02:00 Baso % (Auto) 0.5 % 03/02/22 02:00 Neut # (Auto) 10.66 10^3/uL (1. 8-7.7) H 03/02/22 02:00 Lymph # (Auto) 1.2 10^3/uL (0.8- 4.8) 03/02/22 02:00 [place] # (Auto) 0.6 10^3/uL (0.2- 0.9) 03/02/22 02:00 Eos # (Auto) 0.0 10^3/uL (0.0- 0.8) 03/02/22 02:00 Baso # (Auto) 0.1 10^3/uL (0.0- 0.1) 03/02/22 02:00 Nucleated RBC % (a uto) 0 % 03/02/22 02:00 Nucleated RBCs # 0.0 /100WBC 03/02/22 02:00 Sodium 149 mmol/L (136-1 45) H 03/02/22 02:00 Potassium 3.8 mmol/L (3.5-5 .1) 03/02/22 02:00 Chloride 113 mmol/L (98-10 7) H 03/02/22 02:00 Carbon Dioxide 24 mmol/L (22-29) 03/02/22 02:00 Anion Gap 15.8 (5-19) 03/02/22 02:00 BUN 29 mg/dL (6-20) H 03/02/22 02:00 Creatinine 1.3 mg/dL (0.7-1. 2) H 03/02/22 02:00 GFR Calculation 64.4 mL/min (90-1 30) L 03/02/22 02:00 Glucose 92 mg/dL (65-115) 03/02/22 02:00 Calculated Osmolal ity 313 mOsm/kg (285- 295) H 03/02/22 02:00 Calcium 9.6 mg/dL (8.5-10 .5) 03/02/22 02:00 Total Bilirubin 1.1 mg/dL (0.15-1 .2) 03/02/22 02:00 AST 68 U/L (0-40) H 03/02/22 02:00 ALT 59 U/L (0-41) H 03/02/22 02:00 Alkaline Phosphata se 85 IU/L (40-130) 03/02/22 02:00 Total Protein 7.0 g/dL (6.6-8.7 ) 03/02/22 02:00 Albumin 4.3 g/dL (3.5-5.2 ) 03/02/22 02:00 Globulin 2.7 g/dL (1.3-4.6 ) 03/02/22 02:00 Salicylates < 0.3 mg/dL (3-10 ) L 03/02/22 02:00 Urine Opiates Scre en Negative ng/mL (N egative) 03/02/22 06:13 Acetaminophen < 5.0 ug/mL (10-3 0) L 03/02/22 02:00 Ur Barbiturates Sc reen Negative ng/mL (N egative) 03/02/22 06:13 Ur Phencyclidine S crn Negative ng/mL (N egative) 03/02/22 06:13 Ur Amphetamines Sc reen Positive ng/mL (N egative) H 03/02/22 06:13 U Benzodiazepines Scrn Negative ng/mL (N egative) 03/02/22 06:13 Urine Cocaine Scre en Negative ng/mL (N egative) 03/02/22 06:13 U Marijuana (THC) Screen Positive ng/mL (N egative) H 03/02/22 06:13 Ethyl Alcohol < 10 mg/dL (0-10) 03/02/22 02:00 Vitals: Last Vital Signs Temp 98.1 F 03/07/22 14:00 Pulse 98 03/07/22 14:00 Resp 16 03/07/22 14:00 BP 121/68 03/07/22 14:00 Pulse Ox 98 03/07/22 14:00 O2 Del Method 03/07/22 14:00 Discharge Plan Discharge Patient Disposition: Home Condition: Stable Prescriptions: Discontinued Thorazine 100 mg PO DAILY Soma 250 mg PO DAILY PRN (Reason: Muscle Spasm) clonazepam [Klonopin] 1 mg Tablet 1 mg PO 1XD Discharge Orders: Discharge Order (Routine); Ordered 03/07/22 Ordered By: Reyes Carlos Referrals: [facility] [Outside] Michael Ferrer MD [Primary Care Provider] - Discharge Diet: Advance as tolerated Discharge Activity: Resume usual activity Patient Instructions: Methamphetamine Abuse, Depression (DC), Cannabis Use Disorder (DC), Help Prevent Suicide (DC), Anxiety (DC), Psychotic Disorder (DC), Suicide Prevention (DC), Opioid Safety Discharge Attestations NPU Time Spent in Discharge Care*: less than 30 min Specific Discharge Activities: Specific discharge activities: educating patient and documenting/other paperwork Status at Discharge: Cognitive status at discharge: cognitively intact , Behavioral status at discharge: cooperative , Coding Level of Care Code Established Pt Acute Chg FW DC note Patient Type Established History Problem Focused Exam Problem Focused Medical Decision Making Straight Forward Diagnoses Impulse control disorder F63.9 Antisocial personality disorder F60.2 Methamphetamine use disorder, severe F15.20 Acute psychosis F23 Drug-induced psychotic disorder F19.959 Chronic schizoaffective disorder F25.9 Cannabis use disorder F12.90
[2022-03-07 15:38] VITALS: BP 121/68; PULSE 98; RESP 16; TEMP 36.7; O2SAT 98
== END 2022-03-07 16:57 | disposition home or self-care (01) | DRG 897 ==
LOC: ER 03:30 → ER IP 06:05 → NP 11:50
PROVIDERS: Admitting Provider Psychiatry & Neurology Psychiatry; Emergency Provider Emergency Medicine; PCP Family Medicine; Visit Provider Psychiatry & Neurology Psychiatry
DX: F15.259 Other stimulant dependence with stimulant-induced psychotic disorder, unspecified (principal); F25.0 Schizoaffective disorder, bipolar type; Z59.00 Homelessness unspecified; Z63.0 Problems in relationship with spouse or partner; F17.210 Nicotine dependence, cigarettes, uncomplicated; Z81.8 Family history of other mental and behavioral disorders; F12.90 Cannabis use, unspecified, uncomplicated; L23.7 Allergic contact dermatitis due to plants, except food; F63.9 Impulse disorder, unspecified; F60.2 Antisocial personality disorder
CPT/HCPCS: 73630; 80053; 80306; 80307; 85025; 96372; 97165; 99285; J1200; J1630; J2060; J2250; J3486; J7512

== ENCOUNTER 2023-09-05 23:40 | Emergency (ER) | payer SELFPAY ==
[2023-09-05 23:44] VITALS: BP 122/76; PULSE 88; RESP 20; TEMP 36.6; O2SAT 97; BMI 27.1
--- NOTE | 2023-09-06 00:02 | ED.C_ITS ---
HPI - Psych 2 General: Chief Complaint: Psychiatric Symptoms Stated Complaint: MHE Time Seen by Provider: 09/05/23 23:49 History of Present Illness: Patient was well found wandering down in [place] and when security brought him to the registration desk patient stated he needed to be checked in because he feels crazy. Patient says he wants to detox off meth and pills. He states he is a daily user of meth and last used yesterday. Patient immediately asked for a sandwich and water. It is noted that the patient is homeless. Patient denies any suicidal or homicidal ideations. Review of Systems 2 General: Reports: 10 or more systems reviewed and unremarkable except in HPI and below PFSH ED 2 PFSH: Medical History Chronic schizoaffective disorder Social History Smoking and tobacco/nicotine status: current every day tobacco/nicotine user Substance/Drug Use: current Physical Exam 2 Const: COMMON NORMALS: no acute distress, average body habitus, patient oriented x3, no limitations, healthy appearing, alert and well nourished HENMT: COMMON NORMALS: normocephalic, hearing grossly normal bilaterally, external ears normal, Normal external nose present, moist oral mucous membranes and oropharynx normal; head/scalp not atraumatic (Multiple superficial abrasions on forehead and scalp) HEAD & SCALP: normocephalic; not atraumatic (Multiple superficial abrasions on forehead and scalp) NOSE: N ormal external nose present EXTERNAL EAR: Yes external ears normal Neck/C-Spine: COMMON NORMALS: full ROM, no lymphadenopathy, supple, no meningeal signs, no JVD and Thyroid normal THYROID: Thyroid normal Chest: COMMONS NORMALS: normal inspection of the chest and normal palpation of entire chest wall Resp: COMMON NORMALS: normal respiratory effort, No retractions, No use of accessory muscles and clear to auscultation bilaterally AUSCULTATION: clear to auscultation bilaterally Cardio: COMMON NORMALS: no JVD, regular rate, regular rhythm, S1 normal heart sound present, S2 normal heart sound present, No gallops present (Cardio), No clicks present (Cardio), No murmurs present (Cardio) and No rub (Cardio) R ATE: regular rate RHYTHM: regular rhythm HEART SOUNDS: S1 normal heart sound present and S2 normal heart sound present GI: COMMON NORMALS: Normal to inspection, nondistended, normoactive bowel sounds present, Soft to palpation, non-tender and No hepatosplenomegaly present PALPATION: Yes Soft to palpation and Yes No hepatosplenomegaly present Neuro: COMMON NORMALS: patient oriented x3 SENSORIUM/ORIENTATION: Yes alert MENINGEAL SIGNS: Yes no meningeal signs Course 2 Vital Signs: Vital signs: Vital Signs Temperature 98 F 09/05/23 23:44 Pulse Rate 74 09/06/23 05:04 Respiratory Rate 16 09/06/23 05:04 Blood Pressure 132/64 09/06/23 05:04 Pulse Oximetry 97 09/06/23 05:04 Oxygen Delivery Me thod Room Air 09/05/23 23:44 MDM - Psych Medical Decision Making Patient had labs drawn to include CBC CMP UA UDS acetaminophen salicylates ethanol. Is noted patient is positive for amphetamines benzos and THC, patient's liver enzymes are slightly elevated. These findings was discussed with the patient. Is also discussed that we do not do inpatient rehab and at this point we have not met admission criteria. It is suggested that patient go to [facility] or the crisis center and they might build point him in direction of an outpatient rehab. Patient be discharged from the ER. Differential Diagnosis Unlikely acute psychosis, chronic schizophrenia, suicidal ideation, bipolar disorder, depression, drug-induced psychotic disorder or acute anxiety Medical Records I reviewed the patient's medical records. Lab Data I reviewed the patient's lab results. 09/06/23 00:02 09/06/23 00:02 Laboratory Results WBC 5.23 10^3/uL (3.29-11.43) 09/06/23 00:02 RBC 4.87 10^6/uL (3.85-5.65) 09/06/23 00:02 Hgb 15.20 g/dL (11.27-16.99) 09/06/23 00:02 Hct 45.4 % (37-53) 09/06/23 00:02 MCV 93.2 fl (82-101) 09/06/23 00:02 MCH 31.2 pg (27-33) 09/06/23 00:02 MCHC 33.5 g/dL (30-55) 09/06/23 00:02 RDW 12.3 % (12.1-15.1) 09/06/23 00:02 Plt Count 255 10^3/cmm (157-399) 09/06/23 00:02 MPV 9.0 fL (7.4-10.4) 09/06/23 00:02 Neut % (Auto) 43.7 % 09/06/23 00:02 Lymph % (Auto) 43.4 % 09/06/23 00:02 [place] % (Auto) 9.0 % 09/06/23 00:02 Eos % (Auto) 2.9 % 09/06/23 00:02 Baso % (Auto) 0.8 % 09/06/23 00:02 Neut # (Auto) 2.29 10^3/uL (1.8-7.7) 09/06/23 00:02 Lymph # (Auto) 2.3 10^3/uL (0.8-4.8) 09/06/23 00:02 [place] # (Auto) 0.5 10^3/uL (0.2-0.9) 09/06/23 00:02 Eos # (Auto) 0.2 10^3/uL (0.0-0.8) 09/06/23 00:02 Baso # (Auto) 0.0 10^3/uL (0.0-0.1) 09/06/23 00:02 Nucleated RBC % (auto) 0 % 09/06/23 00:02 Nucleated RBCs # 0.0 /100WBC 09/06/23 00:02 Sodium 139 mmol/L (136-145) 09/06/23 00:02 Potassium 4.0 mmol/L (3.5-5.1) 09/06/23 00:02 Chloride 104 mmol/L (98-107) 09/06/23 00:02 Carbon Dioxide 27 mmol/L (22-29) 09/06/23 00:02 Anion Gap 12.0 (5-19) 09/06/23 00:02 BUN 22 mg/dL (6-20) H 09/06/23 00:02 Creatinine 1.1 mg/dL (0.7-1.2) 09/06/23 00:02 GFR Calculation 77.6 mL/min (90-130) L 09/06/23 00:02 Glucose 87 mg/dL (65-115) 09/06/23 00:02 Calculated Osmolality 291 mOsm/kg (285-295) 09/06/23 00:02 Calcium 8.8 mg/dL (8.5-10.5) 09/06/23 00:02 Total Bilirubin 2.2 mg/dL (0.15-1.2) H 09/06/23 00:02 AST 132 U/L (0-40) H 09/06/23 00:02 ALT 76 U/L (0-41) H 09/06/23 00:02 Alkaline Phosphatase 71 U/L (40-130) 09/06/23 00:02 Total Protein 6.3 g/dL (6.6-8.7) L 09/06/23 00:02 Albumin 3.9 g/dL (3.5-5.2) 09/06/23 00:02 Globulin 2.4 g/dL (1.3-4.6) 09/06/23 00:02 Urine Color Yellow (Yellow) 09/06/23 00:57 Urine Appearance Clear (CLEAR) 09/06/23 00:57 Urine pH 5 (5-7) 09/06/23 00:57 Ur Specific [place] 1.025 (1.005-1.030) 09/06/23 00:57 Urine Protein Trace (Negative) 09/06/23 00:57 Urine Glucose (UA) Norm (Normal) 09/06/23 00:57 Urine Ketones 1+ (Negative) H 09/06/23 00:57 Urine Blood Neg (Negative) 09/06/23 00:57 Urine Nitrate Negative (Negative) 09/06/23 00:57 Urine Bilirubin Neg (Negative) 09/06/23 00:57 Urine Urobilinogen 1 mg/dL (Negative) H 09/06/23 00:57 Ur Leukocyte Esterase Negative (Negative) 09/06/23 00:57 Urine RBC 0-4 /hpf (0-2) H 09/06/23 00:57 Urine WBC None /hpf (0-5) 09/06/23 00:57 Ur Squamous Epith Cells None /hpf (0-5) 09/06/23 00:57 Amorphous Sediment Not Reportable 09/06/23 00:57 Urine Bacteria 1+ /hpf (NONE) H 09/06/23 00:57 Salicylates < 0.3 mg/dL (3-10) L 09/06/23 00:02 Urine Opiates Screen Negative ng/mL (Negative) 09/06/23 00:57 Acetaminophen < 5.0 ug/mL (10-30) L 09/06/23 00:02 Ur Barbiturates Screen Negative ng/mL (Negative) 09/06/23 00:57 Ur Phencyclidine Scrn Negative ng/mL (Negative) 09/06/23 00:57 Ur Amphetamines Screen Positive ng/mL (Negative) H 09/06/23 00:57 U Benzodiazepines Scrn Positive ng/mL (Negative) H 09/06/23 00:57 Urine Cocaine Screen Negative ng/mL (Negative) 09/06/23 00:57 U Marijuana (THC) Screen Positive ng/mL (Negative) H 09/06/23 00:57 Ethyl Alcohol < 10 mg/dL (0-10) 09/06/23 00:02 No radiology studies performed this visit Discharge Plan Discharge Patient Disposition: Home Clinical Impression: Polysubstance abuse, Elevated liver enzymes Condition: Stable Discharge Orders: Discharge ED (Routine); Ordered 09/06/23 Ordered By: Dyllan Melgar Patient Instructions: Polysubstance Use Disorder (ED) Activity Restrictions/Additional Instructions: Your lab work performed in ER showed you are positive for amphetamines, benzodiazepines, and THC. Your blood work also showed your liver enzymes are slightly elevated. At this time you do not meet the criteria for inpatient treatment. It is suggested that you go to [facility] or the crisis center as they may be able to help point you to an outpatient treatment center. Otherwise follow- up with your family practice physician for further evaluation and treatment of your elevated liver enzymes. Coding Level of Care Code ED Community Living Specialist for Dana Vargas
[2023-09-06 00:09] LABS: Basophils % 0.8 %; Eosinophils # 0.2 10^3/uL (0.0-0.8); Eosinophils % 2.9 %; Hematocrit 45.4 % (37-53); Lymphocytes # 2.3 10^3/uL (0.8-4.8); Lymphocytes % 43.4 %; Mean Corpuscular HGB Conc 33.5 g/dL (30-55); Mean Corpuscular Hemoglobin 31.2 pg (27-33); Mean Corpuscular Volume 93.2 fl (82-101); Monocytes # 0.5 10^3/uL (0.2-0.9); Neutrophils # 2.29 10^3/uL (1.8-7.7); Neutrophils % 43.7 %; Nucleated Red Blood Cells % 0 %; Platelet Count 255 10^3/cmm (157-399); Red Blood Count 4.87 10^6/uL (3.85-5.65); Red Cell Distribution Width 12.3 % (12.1-15.1); White Blood Count 5.23 10^3/uL (3.29-11.43)
[2023-09-06 00:24] LABS: Alanine Aminotransferase 76 U/L (0-41); Albumin Level 3.9 g/dL (3.5-5.2); Alkaline Phosphatase 71 U/L (40-130); Aspartate Amino Transferase 132 U/L (0-40); Blood Urea Nitrogen 22 mg/dL (6-20); Calcium 8.8 mg/dL (8.5-10.5); Carbon Dioxide 27 mmol/L (22-29); Chloride 104 mmol/L (98-107); Globulin 2.4 g/dL (1.3-4.6); Glomerular Filtration Rate 77.6 mL/min (90-130); Glucose 87 mg/dL (65-115); Osmolality Calculated 291 mOsm/kg (285-295); Sodium 139 mmol/L (136-145); Total Bilirubin 2.2 mg/dL (0.15-1.2); Total Protein 6.3 g/dL (6.6-8.7)
[2023-09-06 00:25] LABS: Acetaminophen < 5.0 ug/mL (10-30); Alcohol Level < 10 mg/dL (0-10); Salicylate < 0.3 mg/dL (3-10)
[2023-09-06 01:25] LABS: Add Urine Microscopic? YES; Bilirubin Urine Neg (Negative); Blood Urine Neg (Negative); Glucose Urine UA Norm (Normal); Ketones Urine 1+ (Negative); Leukocyte Esterase Urine Negative (Negative); Nitrate Urine Negative (Negative); Protein Urine Trace (Negative); RBC Urine 0-4 /hpf (0-2); Specific Gravity, Urine 1.025 (1.005-1.030); Urine Appearance Clear (CLEAR); Urine Color Yellow (Yellow); Urobilinogen Urine 1 mg/dL (Negative); pH Urine 5 (5-7)
[2023-09-06 01:26] LABS: Add Urine Culture? No; Amphetamines Screen Urine Positive (Negative); Bacteria Urine 1+ /hpf; Barbiturates Screen Urine Negative (Negative); Benzodiazepines Screen Urine Positive (Negative); Cocaine Screen Urine Negative (Negative); Opiate Screen Urine Negative (Negative); PCP Screen Urine Negative (Negative); THC Screen Urine Positive (Negative)
[2023-09-06 05:04] VITALS: BP 132/64; PULSE 74; RESP 16; O2SAT 97
== END 2023-09-06 05:05 | disposition home or self-care (01) ==
PROVIDERS: Emergency Provider Emergency Medicine
DX: F19.10 Other psychoactive substance abuse, uncomplicated (principal); R74.8 Abnormal levels of other serum enzymes; Z72.0 Tobacco use
CPT/HCPCS: 80053; 80306; 80307; 81001; 85025; 99283

== ENCOUNTER 2025-04-02 08:32 | Inpatient (IN) | payer MEDICAID, SELFPAY ==
[2025-04-02 08:35] VITALS: BP 135/77; PULSE 81; RESP 20; TEMP 36.3; O2SAT 98
--- NOTE | 2025-04-02 08:58 | ED.C_ITS ---
Documented by User: PERI Mcgill 04/02/25 09:50 HPI - Psych 2 General: Chief Complaint: Psychiatric Symptoms Stated Complaint: SI Time Seen by Provider: 04/02/25 08:57 Source: patient Mode of arrival: ambulatory Limitations: no limitations History of Present Illness: Patient is a 34-year-old male presents to ED today with a complaint of depression and suicidal ideations. He states he has felt suicidal for several days. States yesterday he attempted to jump off a bridge and a suicide attempt. He is complaining of bilateral foot pain. States he takes medications for anxiety but does not take anything for depression. States he has also had thoughts of wanting to hang himself. MD complaint: suicidal ideation and feels depressed Onset (ago): day(s) Duration: constant History of same: Yes Relieving factors: none Exacerbating factors: none Associated psychiatric symptoms: depression and suicidal ideation Associated symptoms: Reports depression and suicidal ideation; Deny auditory hallucinations, visual hallucinations or homicidal ideation Treatments prior to arrival: none If self harm: admits thoughts of self harm, has plan and has acted on plan Related Data Home Medications ?Medication ?Instructions ?Recorded ?Confirmed clonazepam 0.5 mg tablet (Klonopin) 0.25 - 0.5 mg PO B ID PRN Panic 04/02/25 04/02/25 Attack(S) paroxetine HCl 20 mg tablet (Paxil) 20 mg PO BEDTIME 0 04/02/25 04/02/25 Allergies Allergy/AdvReac Type Severity Reaction Status Date / Time No Known Allergies Allergy Verified 03/02/22 08:54 Review of Systems 2 Const: Denies: fever(s) or chills Card: Denies: chest pain, palpitations, lightheadedness or syncope Resp: Denies: dyspnea GI: Denies: abdominal pain, nausea, vomiting or diarrhea Musc: Reports: extremity pain (bilateral feet) Skin/Breast: Reports: other (laceration plantar R foot); Denies: rash Neuro: Denies: headache(s), numbness in extremities or sensory changes Psych: Reports: anxiety, depression, hopelessness and suicidal ideation; Denies: visual hallucinations, auditory hallucinations or homicidal ideation PFSH ED 2 PFSH: Medical History Dermatitis Cannabis use disorder Chronic schizoaffective disorder Social History Smoking and tobacco/nicotine status: current every day tobacco/nicotine user Substance/Drug Use: current Physical Exam 2 Const: COMMON NORMALS: no acute distress, average body habitus, patient oriented x3, no limitations, healthy appearing, alert and well nourished G ENERAL APPEARANCE: cooperative ORIENTATION/CONSCIOUSNESS: Yes awake, Yes oriented to person, Yes oriented to place and Yes oriented to time Resp: COMMON NORMALS: normal respiratory effort and clear to auscultation bilaterally AUSCULTATION: clear to auscultation bilaterally Cardio: COMMON NORMALS: regular rate and regular rhythm RATE: regular rate RHYTHM: regular rhythm Extremity: COMMON NORMALS: capillary refill normal, no clubbing, cyanosis or edema, no calf tenderness and no pedal edema RIGHT LOWER EXTREMITY: Yes foot & digits LEFT LOWER EXTREMITY: Yes foot & digits OTHER: multiple abrasions to bilateral LEs; he complains of tenderness to bilateral feet/heels; he has a circular flap like laceration to plantar R foot that appears older than yesterday and is not going to be amendable to repair Neuro: COMMON NORMALS: patient oriented x3, moves all extremities, no focal motor deficits and no sensory deficits noted SENSORIUM/ORIENTATION: Yes alert, Yes oriented to person, Yes oriented to place and Yes oriented to time Psych: COMMON NORMALS: mental status grossly normal, Normal thought process present, cooperative, normal affect, speech normal, activity/motor behavior normal, denies hallucinations and denies homicidal ideation APPEARANCE: Yes grossly normal ATTITUDE: Yes calm ACTIVITY/MOTOR BEHAVIOR: Yes appropriate eye contact and No psychomotor agitation SPEECH: Yes normal speech MOOD & AFFECT: Yes euthymic mood THOUGHT PROCESS: Normal thought process present THOUGHT CONTENT: Yes Suicidality present MEMORY/COGNITION: Yes memory grossly intact and Yes cognition grossly intact INSIGHT: Fair insight present (Psych) JUDGEMENT: Fair judgement present (Psych) Skin: NARRATIVE SKIN EXAM: see above TRAUMA: abrasion and laceration Course 2 Consultations: Consultation #1: Dr. Carlos-accepts admission to [facility]PU Vital Signs: Vital signs: Vital Signs Temperature 97.4 F L 04/02/25 08:35 Pulse Rate 81 04/02/25 10:32 Respiratory Rate 20 H 04/02/25 08:35 Blood Pressure 125/67 04/02/25 10:32 Pulse Oximetry 97 04/02/25 10:32 MDM - Psych Medical Decision Making Patient will be placed on a 96-hour hold for treatment of depression/SI. He will be admitted to NPU to Dr. Carlos. Laceration to plantar foot appears old/contaminated-not amendable to repair. Will copiously clean/dress and place him on oral Keflex. Medical Records I reviewed the patient's medical records. Lab Data I reviewed the patient's lab results. 04/02/25 09:10 04/02/25 09:10 Radiology Impressions Foot X-Ray 04/02/25 09:09 IMPRESSION: 1. No acute fracture identified. Laboratory Results WBC 6.21 10^3/uL (3.29-11.43) 04/02/25 09:10 RBC 4.40 10^6/uL (3.85-5.65) 04/02/25 09:10 Hgb 13.80 g/dL (11.27-16.99) 04/02/25 09:10 Hct 42.4 % (37-53) 04/02/25 09:10 MCV 96.4 fl (82-101) 04/02/25 09:10 MCH 31.4 pg (27-33) 04/02/25 09:10 MCHC 32.5 g/dL (30-55) 04/02/25 09:10 RDW 11.9 % (12.1-15.1) L 04/02/25 09:10 Plt Count 193 10^3/cmm (157-399) 04/02/25 09:10 MPV 9.9 fL (7.4-10.4) 04/02/25 09:10 Neut % (Auto) 66.2 % 04/02/25 09:10 Lymph % (Auto) 21.1 % 04/02/25 09:10 [place] % (Auto) 8.4 % 04/02/25 09:10 Eos % (Auto) 3.1 % 04/02/25 09:10 Baso % (Auto) 1.0 % 04/02/25 09:10 Neut # (Auto) 4.12 10^3/uL (1.8-7.7) 04/02/25 09:10 Lymph # (Auto) 1.3 10^3/uL (0.8-4.8) 04/02/25 09:10 [place] # (Auto) 0.5 10^3/uL (0.2-0.9) 04/02/25 09:10 Eos # (Auto) 0.2 10^3/uL (0.0-0.8) 04/02/25 09:10 Baso # (Auto) 0.1 10^3/uL (0.0-0.1) 04/02/25 09:10 Nucleated RBC % (auto) 0 % 04/02/25 09:10 Nucleated RBCs # 0.0 /100WBC 04/02/25 09:10 Sodium 144 mmol/L (136-145) 04/02/25 09:10 Potassium 4.6 mmol/L (3.5-5.1) 04/02/25 09:10 Chloride 110 mmol/L (98-107) H 04/02/25 09:10 Carbon Dioxide 25 mmol/L (22-29) 04/02/25 09:10 Anion Gap 13.6 (5-19) 04/02/25 09:10 BUN 18 mg/dL (6-20) 04/02/25 09:10 Creatinine 0.9 mg/dL (0.7-1.2) 04/02/25 09:10 GFR Calculation 96.6 mL/min (90-130) 04/02/25 09:10 Glucose 116 mg/dL (65-115) H 04/02/25 09:10 Calculated Osmolality 301 mOsm/kg (285-295) H 04/02/25 09:10 Calcium 8.2 mg/dL (8.5-10.5) L 04/02/25 09:10 Total Bilirubin 0.4 mg/dL (0.15-1.2) 04/02/25 09:10 AST 56 U/L (0-40) H 04/02/25 09:10 ALT 45 U/L (0-41) H 04/02/25 09:10 Alkaline Phosphatase 77 U/L (40-130) 04/02/25 09:10 Total Protein 6.2 g/dL (6.6-8.7) L 04/02/25 09:10 Albumin 3.6 g/dL (3.5-5.2) 04/02/25 09:10 Globulin 2.6 g/dL (1.3-4.6) 04/02/25 09:10 Salicylates 1.6 mg/dL (3-10) L 04/02/25 09:10 Urine Opiates Screen Negative ng/mL (Negative) 04/02/25 08:44 Acetaminophen < 5.0 ug/mL (10-30) L 04/02/25 09:10 Ur Barbiturates Screen Negative ng/mL (Negative) 04/02/25 08:44 Ur Phencyclidine Scrn Negative ng/mL (Negative) 04/02/25 08:44 Ur Amphetamines Screen Negative ng/mL (Negative) 04/02/25 08:44 U Benzodiazepines Scrn Positive ng/mL (Negative) H 04/02/25 08:44 Urine Cocaine Screen Negative ng/mL (Negative) 04/02/25 08:44 U Marijuana (THC) Screen Positive ng/mL (Negative) H 04/02/25 08:44 Ethyl Alcohol < 10 mg/dL (0-10) 04/02/25 09:10 All radiology interpretation(s) finalized by discharge Discharge Plan Discharge Patient Disposition: Admitted As Inpatient Clinical Impression: Suicidal ideation Contusion of foot Qualifiers: Encounter type: initial encounter Laterality: right Qualified Code(s): S90.31XA - Contusion of right foot, initial encounter Laceration of plantar aspect of right foot Qualifiers: Encounter type: initial encounter Qualified Code(s): S91.311A - Laceration without foreign body, right foot, initial encounter Condition: Stable Coding Level of Care Code ED Outside Machinist Apprentice for Chg Fwd Documented by User: Augustine Plascencia DO 04/02/25 10:44 HPI - Psych 2 General: Chief Complaint: Psychiatric Symptoms Stated Complaint: SI Time Seen by Provider: 04/02/25 08:57 Related Data Home Medications ?Medication ?Instructions ?Recorded ?Confirmed clonazepam 0.5 mg tablet (Klonopin) 0.25 - 0.5 mg PO B ID PRN Panic 04/02/25 04/02/25 Attack(S) paroxetine HCl 20 mg tablet (Paxil) 20 mg PO BEDTIME 0 04/02/25 04/02/25 Allergies Allergy/AdvReac Type Severity Reaction Status Date / Time No Known Allergies Allergy Verified 03/02/22 08:54 PFS ED 2 PFSH: Medical History Dermatitis Cannabis use disorder Chronic schizoaffective disorder Social History Smoking and tobacco/nicotine status: current every day tobacco/nicotine user Substance/Drug Use: current Course 2 Vital Signs: Vital signs: Vital Signs Temperature 97.4 F L 04/02/25 08:35 Pulse Rate 81 04/02/25 10:32 Respiratory Rate 20 H 04/02/25 08:35 Blood Pressure 125/67 04/02/25 10:32 Pulse Oximetry 97 04/02/25 10:32 [facility] - Psych Medical Decision Making Patient will be placed on a 96-hour hold for treatment of depression/SI. He will be admitted to NPU to Dr. Carlos. Laceration to plantar foot appears old/contaminated-not amendable to repair. Will copiously clean/dress and place him on oral Keflex. Midlevel review Lab Data 04/02/25 09:10 04/02/25 09:10 Radiology Impressions Foot X-Ray 04/02/25 09:09 IMPRESSION: 1. No acute fracture identified. Laboratory Results WBC 6.21 10^3/uL (3.29-11.43) 04/02/25 09:10 RBC 4.40 10^6/uL (3.85-5.65) 04/02/25 09:10 Hgb 13.80 g/dL (11.27-16.99) 04/02/25 09:10 Hct 42.4 % (37-53) 04/02/25 09:10 MCV 96.4 fl (82-101) 04/02/25 09:10 MCH 31.4 pg (27-33) 04/02/25 09:10 MCHC 32.5 g/dL (30-55) 04/02/25 09:10 RDW 11.9 % (12.1-15.1) L 04/02/25 09:10 Plt Count 193 10^3/cmm (157-399) 04/02/25 09:10 MPV 9.9 fL (7.4-10.4) 04/02/25 09:10 Neut % (Auto) 66.2 % 04/02/25 09:10 Lymph % (Auto) 21.1 % 04/02/25 09:10 [place] % (Auto) 8.4 % 04/02/25 09:10 Eos % (Auto) 3.1 % 04/02/25 09:10 Baso % (Auto) 1.0 % 04/02/25 09:10 Neut # (Auto) 4.12 10^3/uL (1.8-7.7) 04/02/25 09:10 Lymph # (Auto) 1.3 10^3/uL (0.8-4.8) 04/02/25 09:10 [place] # (Auto) 0.5 10^3/uL (0.2-0.9) 04/02/25 09:10 Eos # (Auto) 0.2 10^3/uL (0.0-0.8) 04/02/25 09:10 Baso # (Auto) 0.1 10^3/uL (0.0-0.1) 04/02/25 09:10 Nucleated RBC % (auto) 0 % 04/02/25 09:10 Nucleated RBCs # 0.0 /100WBC 04/02/25 09:10 Sodium 144 mmol/L (136-145) 04/02/25 09:10 Potassium 4.6 mmol/L (3.5-5.1) 04/02/25 09:10 Chloride 110 mmol/L (98-107) H 04/02/25 09:10 Carbon Dioxide 25 mmol/L (22-29) 04/02/25 09:10 Anion Gap 13.6 (5-19) 04/02/25 09:10 BUN 18 mg/dL (6-20) 04/02/25 09:10 Creatinine 0.9 mg/dL (0.7-1.2) 04/02/25 09:10 GFR Calculation 96.6 mL/min (90-130) 04/02/25 09:10 Glucose 116 mg/dL (65-115) H 04/02/25 09:10 Calculated Osmolality 301 mOsm/kg (285-295) H 04/02/25 09:10 Calcium 8.2 mg/dL (8.5-10.5) L 04/02/25 09:10 Total Bilirubin 0.4 mg/dL (0.15-1.2) 04/02/25 09:10 AST 56 U/L (0-40) H 04/02/25 09:10 ALT 45 U/L (0-41) H 04/02/25 09:10 Alkaline Phosphatase 77 U/L (40-130) 04/02/25 09:10 Total Protein 6.2 g/dL (6.6-8.7) L 04/02/25 09:10 Albumin 3.6 g/dL (3.5-5.2) 04/02/25 09:10 Globulin 2.6 g/dL (1.3-4.6) 04/02/25 09:10 Salicylates 1.6 mg/dL (3-10) L 04/02/25 09:10 Urine Opiates Screen Negative ng/mL (Negative) 04/02/25 08:44 Acetaminophen < 5.0 ug/mL (10-30) L 04/02/25 09:10 Ur Barbiturates Screen Negative ng/mL (Negative) 04/02/25 08:44 Ur Phencyclidine Scrn Negative ng/mL (Negative) 04/02/25 08:44 Ur Amphetamines Screen Negative ng/mL (Negative) 04/02/25 08:44 U Benzodiazepines Scrn Positive ng/mL (Negative) H 04/02/25 08:44 Urine Cocaine Screen Negative ng/mL (Negative) 04/02/25 08:44 U Marijuana (THC) Screen Positive ng/mL (Negative) H 04/02/25 08:44 Ethyl Alcohol < 10 mg/dL (0-10) 04/02/25 09:10 Discharge Plan Discharge Patient Disposition: Admitted As Inpatient Clinical Impression: Suicidal ideation Contusion of foot Qualifiers: Encounter type: initial encounter Laterality: right Qualified Code(s): S90.31XA - Contusion of right foot, initial encounter Laceration of plantar aspect of right foot Qualifiers: Encounter type: initial encounter Qualified Code(s): S91.311A - Laceration without foreign body, right foot, initial encounter Condition: Stable Coding Level of Care Code ED Outside Machinist Apprentice for Dana Vargas
--- NOTE | 2025-04-02 09:09 | XR_ITS ---
WS: [id number] Exam: XR foot LT min 3V* [id number] Date/Time of Exam: 04/02/2025 9:10 AM Reason For Exam: injury No acute fracture. The joints are preserved. Normal soft tissues. XR/XR foot LT min 3V* [id number] IMPRESSION: 1. No acute fracture identified.
--- NOTE | 2025-04-02 09:09 | XR_ITS ---
WS: [id number] Exam: XR foot RT min 3V* [id number] Date/Time of Exam: 04/02/2025 9:10 AM Reason For Exam: injury No acute fracture. The joints are preserved. No soft tissue foreign bodies. XR/XR foot RT min 3V* [id number] IMPRESSION: 1. No acute fracture or other significant finding.
[2025-04-02 09:16] LABS: Hematocrit 42.4 % (37-53); Hemoglobin 13.80 g/dL (11.27-16.99); Mean Corpuscular HGB Conc 32.5 g/dL (30-55); Mean Corpuscular Hemoglobin 31.4 pg (27-33); Mean Corpuscular Volume 96.4 fl (82-101); Nucleated Red Blood Cells % 0 %; Platelet Count 193 10^3/cmm (157-399); Red Blood Count 4.40 10^6/uL (3.85-5.65); White Blood Count 6.21 10^3/uL (3.29-11.43)
[2025-04-02 09:17] LABS: PCP Screen Urine Negative (Negative)
[2025-04-02 09:34] LABS: Acetaminophen < 5.0 ug/mL (10-30); Alanine Aminotransferase 45 U/L (0-41); Albumin Level 3.6 g/dL (3.5-5.2); Alcohol Level < 10 mg/dL (0-10); Alkaline Phosphatase 77 U/L (40-130); Anion Gap 13.6 (5-19); Aspartate Amino Transferase 56 U/L (0-40); Blood Urea Nitrogen 18 mg/dL (6-20); Calcium 8.2 mg/dL (8.5-10.5); Carbon Dioxide 25 mmol/L (22-29); Chloride 110 mmol/L (98-107); Creatinine Clr Calc Pharmacy 128.8129; Globulin 2.6 g/dL (1.3-4.6); Glucose 116 mg/dL (65-115); Osmolality Calculated 301 mOsm/kg (285-295); Potassium 4.6 mmol/L (3.5-5.1); Salicylate 1.6 mg/dL (3-10); Sodium 144 mmol/L (136-145); Total Protein 6.2 g/dL (6.6-8.7)
--- NOTE | 2025-04-02 09:36 | PC.PHAR ---
Pharmacist Ra verified pts' medications-states pt just released from senior care.
--- NOTE | 2025-04-02 09:40 | PC.NURSE ---
Involuntary 96 hour hold rights read and reviewed with patient. John from security present during read of rights. Patient verbalized understandings and copy of rights given to patient.
--- NOTE | 2025-04-02 10:02 | PC.NURSE ---
PT RIGHT FOOT CLEANED AND DRESSED BY CARE TAKER.
[2025-04-02 10:32] VITALS: BP 125/67; PULSE 81; O2SAT 97
[2025-04-02 11:52] VITALS: BP 120/63; PULSE 89; RESP 17; TEMP 36.6; O2SAT 98
--- NOTE | 2025-04-02 13:08 | P.NPUHP_ITS ---
Providers/Chief Complaint 2 Admitting Physician: Reyes Carlos MD Chief Complaint: SI HPI NPU History of Present Illness Eric Ramsay is a 34 year old male who presented to the emergency department with complaints of having depression and suicidal ideation. Patient had reported that he had jumped off of a bridge 40 feet high in an attempt to harm himself. He had complained of bilateral foot pain. The patient was a poor historian with a limited willingness to engage on interview. He had reported that he had problems with depression and anxiety. He had denied any recent legal troubles despite there being confirmation that he had been in car serrated for a few days and released approximately 2 days ago. He reports that he has problems with anxiety. He reports having intermittent problems with suicidal ideation and describes having problems with being impulsive. He reports no current drug use other than marijuana. He reports that he has problems with memory. He has reported that he had an argument with his girlfriend and reports that he has been homeless for several days. He denies any auditory or visual hallucinations. He had reported previous attempts to try to harm himself including attempts of previously trying to hang himself. Previous records had supported a history of methamphetamine use but the patient reports that he has been sober off of methamphetamines and alcohol for many months. Patient denies any prior history of psychosis. He reports no active legal problems. He reports no change in appetite. He denies any feelings of hopelessness or worthlessness. He reports that he had had an argument with his girlfriend that ultimately led the patient to jump off of a bridge. The patient's foot x-ray was negative for any fractures. He reports that he has been homeless for several weeks but was unable to provide any clear details regarding why he had been homeless. He had reported a past history of panic attacks but did not elaborate on any problems with anxiety otherwise. He denied any manic symptoms. Psychiatric history: He reports a history of multiple inpatient hospitalizations for suicide attempts and suicidal ideation. He had reported that he was receiving his medications from an outpatient provider in [facility]. Substance abuse history: The patient denies any use of illicit substances. Previous records indicate a history of methamphetamine abuse. He has reported routine use of marijuana. Medical history: TTP Allergies: nkda Surgeries: none Medications: klonopin .5mg bid, Paxil 20mg at night Legal History: The patient minimizes any legal history although there has been some evidence of him being placed in long term at least a few times. Family psychiatric history: Denied other than addiction on both sides of the family. Psychosocial history: Patient was raised in [place] and states that he was in foster care by the age of 11 after and both of his parents have been incarcerated secondary to substance abuse related issues. He had minimized any history of childhood trauma. He states that he had graduated from high school. He has never been and has no children. He reports that he is currently homeless and unemployed. 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 Excerpt from NPU Discharge Summary from 03/07/2022 below: Discharge Diagnosis (1) Impulse control disorder: Status: Acute (2) Antisocial personality disorder: Status: Acute (3) Methamphetamine use disorder, severe: Status: Resolved (4) Acute psychosis: Status: Resolved (5) Drug-induced psychotic disorder: Status: Resolved (6) Chronic schizoaffective disorder: Status: Chronic (7) Cannabis use disorder: Status: Acute Reason for Visit suicidal ideation Brief History: Eric Ramsay is a 31 year old male who presented to the ED with the following report: Chief Complaint: Psychiatric Symptoms Stated Complaint: general Time Seen by Provider: 03/02/22 01:03 Source: patient and police Mode of arrival: other (police) Limitations: no limitations History of Present Illness:??31-year-old male brought here by police for acute psychosis.? Patient was trying to break into cars in a house tonight that he thought was his but was not.? Patient appears to be under the influence of methamphetamine does have a history of drug abuse.? Patient has flight of ideas here are very pressured speech and makes no sense when he is speaking.? He denies any injuries no other medical complaints at this time he is not suicidal or homicidal Associated symptoms: Reports visual hallucinations and delusions. He was admitted to the neuropsychiatric unit for definitive treatment of those issues.? He presents today continuing the general gestalt of his first hours of admission and emergency room time with irritability and lack of willingness to engage.? Very entitled and narcissistic as he sat down in his room and tries to convince the nurses that he is incapable of getting things himself tried having brought to him and suggesting that there is not a problem.? I attempted to engage noting that he had been on this unit back in April of last year and he endorsed that he did not recall the events of that admission.? Discussed with him that he is on a 96-hour hold which reports he felt was unfair to justified in a attempt by for the police to prevent him from establishing that they are corrected.? I explained to him the process by which the 96-hour hold gives discharge especially with going to be before their hold is up.? He continued not to engage with them as I was leaving the room he suggested a daily he should start his old medication which include Klonopin and Soma.? Discussed the fact that we would review his history and see if previous medications would be appropriate. Per his 04/09/2021 [facility] inpatient psychiatric evaluation: History of Present Illness Eric Ramsay is a 30 year old male with schizoaffective disorder who has had recent depression with passive suicidal ideation after his girlfriend kicked him out of their RV.? The ED note states: [30]yo patient w/ hx of depression and bipolar disorder BIBA for acute suicidal ideation. Patient was kicked out of RV by his girlfriend. He has been living in the [facility] since. Patient reports he lost os his will to live. Denies any suicidal plans. On arrival, the patient is AAOx3 and cooperative with my evaluation. No focal complaints of chest pain, shortness of breath, palpitations, N/V, focal GI/ complaints. +SI currently. No complaints of hallucinations. The patient says that he has been depressed off and on over the last few months, each time that he and his girlfriend have a fight.? He rates his average severity of depression as 2/10 in severity.? He said he became depressed in the past few days when his girlfriend and he drove to [place] to see one of her friends, but she kicked him out of the car.? He denies having felt suicidal.? He does not feel he would be better off .? He says he has never tried to kill himself.? He says he feels hopeful about the future, because it has a lot of possibilities. ? He is feeling good about himself and feels that he can make things happen, i.e., he does not feel helpless.? He said he wanted to come into the hospital a few hours ago, but now that he has had a chance to take a nap and eat a sandwich, he is feeling much better.? He has talked with his mother about staying with her in [place], [place].? She is willing for him to stay there.? He feels he can be safe at home and he wants to leave.? His plan is to go to work tomorrow and reconnect with his providers there. The patient denies auditory and visual hallucinations and says he has no paranoia or ideas of persecution.? He denies using alcohol and drugs and says he smokes about 1 pack of cigarettes per week.? He says he has been hospitalized here before several times.? It looks like his last admission was 08/27/2017, and the note from that visit states: Mr. Ramsay is a 26-year-old male with a previous history of schizoaffective disorder bipolar type, who presented to the [facility] ED with a complaint of suicidal ideation, along with worsening symptoms of depression, and agitation.? He denied experiencing hallucinations.? To admit to experiencing increased anxiety and sleep difficulties.? Patient has not taking his medications for the past week as reports that they were stolen.? He presented with suicidal thoughts with a plan to hang himself.? His symptom presentation was described as moderate. 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 UDS +THC.? As he presents today, he states that he essentially came to the hospital because he didn't have his meds. Would not be more specific about this. Reports some depressed mood, but denies suicidal ideation. No symptoms consistent with angelica, hypomania, or psychosis. Slept well last night. He is actually the most interactive I've seen in months. Psychiatric history: As above. Substance use history: As above. Family history: Patient denies mental health or addiction issues on either side of the family and denies suicide attempts or completions in the family. Psychosocial history: The patient says he grew up and has lived most of his life in [place].? He says he graduated from high school.? He has never been or had kids.? 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 Legal history:? No legal difficulties. Medical history:? Denies any significant medical history. Hospital Course Hospital Course During the hospitalization, patient had routine laboratory studies which were within normal limits except for few outliers.? Additionally there was a general medical evaluation which was also within normal limits and revealed no new acute processes. Discharge Summary: At the time of discharge, lethality was denied and psychosis was resolving.? Mood and anxiety were well managed.? Patient endorsed a plan to avoid all drugs of abuse and follow-up with the aftercare recommendations of the treatment team.? Patient was evaluated and deemed to be absent credible lethality, and had achieved the maximum benefit from an inpatient hospitalization, so was discharged as he refused medications throughout the hospital stay. Meds NPU Home Medications ?Medication ?Instructions ?Recorded ?Confirmed ?Last Taken ?Type clonazepam 0.5 mg tablet (Klonopin) 0.25 - 0.5 mg PO B ID PRN Panic 04/02/25 04/02/25 04/01/25 History Attack(S) paroxetine HCl 20 mg tablet (Paxil) 20 mg PO BEDTIME 0 04/02/25 04/02/25 04/01/25 History Allergies Allergy/AdvReac Type Severity Reaction Status Date / Time No Known Allergies Allergy Verified 03/02/22 08:54 [facility] NPU 2 PFS: Medical History (Updated 04/02/25 @ 13:31 by Reyes Carlos MD) Dermatitis Cannabis use disorder Chronic schizoaffective disorder Social History Smoking and tobacco/nicotine status: current every day tobacco/nicotine user Substance/Drug Use: current Mental Status Exam 2 MSE Comments: This is a well-nourished male dressed in hospital scrubs with limited grooming and fleeting eye contact. There were numerous abrasions and scratches on his body. There was no evidence of any abnormal involuntary motor movements tics or tremors appreciated. There was some evidence of mild psychomotor agitation. He was superficially cooperative on interview. He appeared somewhat guarded. His speech was normal in rate, rhythm, and prosody. His mood was described as okay. His affect was slightly irritable. His thought process was linear but superficial. His thought content revealed suicidal ideation with no homicidal ideation. He did not appear to be responding to internal stimuli. There was no evidence of delusional thinking. He denied any auditory or visual hallucinations. His attention span appeared fair. His insight is poor his judgment is poor. His impulse control appeared limited. He was alert and oriented to person, place, and time. Vitals/I&O/Wt Last Vital Signs Temp 97.4 F L 04/02/25 08:35 Pulse 81 04/02/25 10:32 Resp 20 H 04/02/25 08:35 BP 125/67 04/02/25 10:32 Pulse Ox 97 04/02/25 10:32 Weight last 48 hrs Weight 83.915 kg Data NPU 04/02/25 09:10 04/02/25 09:10 A&P Assessment and plan 1. Impulse control disorder: 2. Antisocial personality disorder: 3. Drug-induced psychotic disorder: 4. Cannabis use disorder: 5. Depression, unspecified: Plan: This is a 34-year-old white male with a significant history of impulsivity and substance use along with antisocial traits who presented to the hospital on a 96-hour hold after allegedly jumping off bridge with suicidal ideation. 1. Restart paxil and klonopin as prescribed. 2. Initiate 15 minute checks for safety. 3. Encourage individual, group and milieu therapies. 4. Encourage sober living treatment after discharge at the highest level of care to which he is willing to commit. 5. We will monitor for safety for consideration of early discontinuation of the 96-hour hold. PDMP PDMP Reviewed: Not Reviewed Involuntary Hold Information 2 96 Hour Hold: 96 Hour Involuntary Admission: Yes Attestations NPU 2 Medical Necessity Statement*: Inpatient hospitalization is medically necessary and the clinically appropriate intervention at this time. We will monitor medication to make changes as indicated. Patient will be in the hospital for over two midnights. The patient's likely length of stay is 3 to 5 days. Coding Level of Care Code Acute Code for [facility] Fwd Diagnoses Impulse control disorder F63.9 Antisocial personality disorder F60.2 Drug-induced psychotic disorder F19.959 Cannabis use disorder F12.90 Depression, unspecified F32.A
--- NOTE | 2025-04-02 13:28 | PC.ADMIT ---
[facility]14 [facility] Admission Note: The patient,Eric Ramsay,34 y/o, was given written information regarding hospital policies, unit procedures and contact persons. Patient's smoking status: current every day smoker. Vital Signs - 8 hr 04/02/25 08:35 04/02/25 10:32 04/02/25 10:45 Temperature 97.4 F L Pulse Rate 81 81 Respiratory Rate 20 H Blood Pressure 135/77 125/67 Pulse Oximetry 98 97 Oxygen Delivery Method Room Air 34 y/o male presents to ER with SA by jumping off a 40 [address] bridge. Patient verbalized previous SI but hanging and stabbing. He has a PMH of anxiety, antisocial personality disorder, schizoaffective, adjustment disorder with depressed mood. Patient currently endorses anxiety 9, depression 6. He denies SI/HI/AVH. He denies using illicit substances and history of. He endorses vaping and smoking 5-6 cigarettes daily. Patient denies family history of mental illness or substance abuse. He has generalized rash, and scratches. He has a laceration to the plantar aspect of his foot.
--- NOTE | 2025-04-02 13:46 | PC.NURSE ---
Dr. Carlos gave a v/o for blmelissa KEITAN
[2025-04-02 14:00] VITALS: BP 131/73; PULSE 96; RESP 17; TEMP 36.8; O2SAT 99
[2025-04-02] MEDS: blistex lip oint 7 gm Tube 1 APPLIC TOPICAL (14:07)
[2025-04-02 20:55] VITALS: BP 135/72; PULSE 94; RESP 19; TEMP 36.9; O2SAT 100
[2025-04-02] MEDS: neomycin-poly-bacitracin oint 28 gm 1 APPLIC TOPICAL (21:29)
[2025-04-03 06:00] VITALS: BP 125/76; PULSE 67; RESP 18; TEMP 36.5; O2SAT 92
[2025-04-03] MEDS: blistex lip oint 7 gm Tube 1 APPLIC TOPICAL (09:41)
--- NOTE | 2025-04-03 13:22 | PC.NURSE ---
Pt requested right foot dressing change, dressing changed on right plantar-Wound cleansed with normal saline, ASHLEY applied and dressed with non adherent dressing and paper tape. Pt tolerated well, BOBBY Marmolejo
[2025-04-03 13:48] VITALS: BP 136/77; PULSE 101; RESP 17; TEMP 37.1; O2SAT 96
--- NOTE | 2025-04-03 14:42 | W.PM.NPUPNS ---
Subjective NPU Subjective: Patient is a 34 year old white male presents on 96 with depression and anxiety with reports of homelessness and suicidal ideation. The patient was cooperative on the milieu. He had reported having depression. He had continued to report a desire to have fpc and requested continued use of Klonopin. He had endorsed pain throughout his body and requested Suboxone as he stated that he did not want to be on opiates. He had denied any methamphetamine use in several weeks. He continued to have relative inconsistency when describing his past history often contraindicating previous information provided to this customs entry writer. Mental Status Exam MSE Comments: This is a well-nourished male dressed in hospital scrubs with limited grooming and fleeting eye contact. There were numerous abrasions and scratches on his body that appeared to be healing. There was no evidence of any abnormal involuntary motor movements tics or tremors appreciated. There was some psychomotor slowing. He was superficially cooperative on interview. He appeared somewhat guarded. His speech was normal in rate, rhythm, and prosody. His mood was described as okay. His affect was irritable. His thought process was linear but superficial. His thought content revealed suicidal ideation with no homicidal ideation. He did not appear to be responding to internal stimuli. There was no evidence of delusional thinking. He denied any auditory or visual hallucinations. His attention span appeared fair. His insight is poor. His judgment is poor. His impulse control appeared limited. He was alert and oriented to person, place, and time. Vitals/I&O/Wt Last Vital Signs Temp 98.7 F 04/03/25 13:48 Pulse 101 H 04/03/25 13:48 Resp 17 04/03/25 13:48 BP 136/77 04/03/25 13:48 Pulse Ox 96 04/03/25 13:48 O2 Del Method Room Air 04/03/25 06:00 Weight last 48 hrs Weight 83.915 kg Data NPU 04/02/25 09:10 04/02/25 09:10 A&P Assessment and plan 1. Impulse control disorder: 2. Antisocial personality disorder: 3. Drug-induced psychotic disorder: 4. Cannabis use disorder: 5. Depression, unspecified: Plan: This is a 34-year-old white male with a significant history of impulsivity and substance use along with antisocial traits who presented to the hospital on a 96-hour hold after allegedly jumping off bridge with suicidal ideation. 1. Increase paxil to 30mg at night and klonopin as prescribed. 2. Initiate 15 minute checks for safety. 3. Encourage individual, group and milieu therapies. 4. Encourage sober living treatment after discharge at the highest level of care to which he is willing to commit. 5. We will monitor for safety for consideration of early discontinuation of the 96-hour hold. PDMP PDMP Reviewed: Not Reviewed Involuntary Hold Information Hold Status: Legal Status: 96 Hour Hold Date/Time Hold Expires: 04/09/2025 @ 0930 96 Hour Hold: 96 Hour Involuntary Admission: Yes Attestations NPU Medical Necessity Statement*: Inpatient hospitalization is medically necessary and the clinically appropriate intervention at this time. We will monitor medication to make changes as indicated. The patient's likely length of stay is 3 to 5 days. Coding Level of Care Code Acute Code for [facility] Fwd Diagnoses Impulse control disorder F63.9 Antisocial personality disorder F60.2 Drug-induced psychotic disorder F19.959 Cannabis use disorder F12.90 Depression, unspecified F32.A
--- NOTE | 2025-04-03 15:08 | PC.NURSE ---
pt removed nicotine patch at this time.
[2025-04-03] MEDS: neomycin-poly-bacitracin oint 28 gm 1 APPLIC TOPICAL (17:05)
[2025-04-03 20:01] VITALS: BMI 27.3
[2025-04-03 20:09] VITALS: BP 121/62; PULSE 88; RESP 18; TEMP 36.6; O2SAT 98
[2025-04-04 06:00] VITALS: BP 116/68; PULSE 55; RESP 16; O2SAT 98
[2025-04-04] MEDS: neomycin-poly-bacitracin oint 28 gm 1 APPLIC TOPICAL ×2 (08:37→17:12)
--- NOTE | 2025-04-04 12:57 | P.NPUPN_ITS ---
Subjective NPU 2 Subjective: Patient is a 34 year old white male presents on with depression and anxiety with reports of homelessness and suicidal ideation. Patient endorsed vague suicidal ideation. He had reported chronic pain issues. He had reported having chronic anxiety with complaints that he felt that he was being watched all of the time. The patient was cooperative on the milieu. He reported trazodone had been helpful for sleep at night. He had reported that Klonopin had been helpful at helping him with relaxing. He had reported no substance abuse in several months with no cravings for methamphetamines endorsed. He had continued to report pain in his feet and his right hand. He had continued to report a desire to have [facility] and was hopeful about remaining in the area over the next several months. Mental Status Exam 2 MSE Comments: This is a well-nourished male dressed in hospital scrubs with limited grooming and fleeting eye contact. There were numerous abrasions and scratches on his body that appeared to be healing. There was no evidence of any abnormal involuntary motor movements tics or tremors appreciated. There was no evidence of psychomotor agitation or psychomotor retardation. He was superficially cooperative on interview. He appeared less guarded. His speech was normal in rate, rhythm, and prosody. His mood was described as nervous. His affect was anxious. His thought process was linear but superficial. His thought content revealed suicidal ideation with no homicidal ideation. He did not appear to be responding to internal stimuli. There was no evidence of delusional thinking. He denied any auditory or visual hallucinations. His attention span appeared fair. His insight is poor. His judgment is poor. His impulse control appeared limited. He was alert and oriented to person, place, and time. Vitals/I&O/Wt Last Vital Signs Temp 97.8 F 04/03/25 20:09 Pulse 55 L 04/04/25 06:00 Resp 16 04/04/25 06:00 BP 116/68 04/04/25 06:00 Pulse Ox 98 04/04/25 06:00 O2 Del Method Room Air 04/04/25 06:00 Weight last 48 hrs Weight 89.074 kg Data NPU 04/02/25 09:10 04/02/25 09:10 A&P Assessment and plan 1. Impulse control disorder: 2. Antisocial personality disorder: 3. Drug-induced psychotic disorder: 4. Cannabis use disorder: 5. Depression, unspecified: Plan: This is a 34-year-old white male with a significant history of impulsivity and substance use along with antisocial traits who presented to the hospital on a 96-hour hold after allegedly jumping off bridge with suicidal ideation. 1. Continue paxil at 30mg at night and increase klonopin .5mg bid. 2. Initiate 15 minute checks for safety. 3. Encourage individual, group and milieu therapies. 4. Encourage sober living treatment after discharge at the highest level of care to which he is willing to commit. 5. We will monitor for safety for consideration of early discontinuation of the 96-hour hold. PDMP PDMP Reviewed: Not Reviewed Involuntary Hold Information 2 Hold Status: Legal Status: 96 Hour Hold Date/Time Hold Expires: 04/09/2025 @ 0930 96 Hour Hold: 96 Hour Involuntary Admission: Yes Attestations NPU 2 Medical Necessity Statement*: Inpatient hospitalization is medically necessary and the clinically appropriate intervention at this time. We will monitor medication to make changes as indicated. The patient's likely length of stay is 3 to 5 days. Coding Level of Care Code Acute Code for [facility] Fwd Diagnoses Impulse control disorder F63.9 Antisocial personality disorder F60.2 Drug-induced psychotic disorder F19.959 Cannabis use disorder F12.90 Depression, unspecified F32.A
[2025-04-04 14:00] VITALS: BP 122/77; PULSE 110; RESP 17; TEMP 36.9; O2SAT 98
[2025-04-04] MEDS: blistex lip oint 7 gm Tube 1 APPLIC TOPICAL (19:16)
[2025-04-04 19:58] VITALS: BP 117/74; PULSE 97; RESP 19; TEMP 36.7; O2SAT 98
[2025-04-05 06:00] VITALS: BP 105/55; PULSE 69; RESP 18; TEMP 36.6; O2SAT 98
[2025-04-05] MEDS: neomycin-poly-bacitracin oint 28 gm 1 APPLIC TOPICAL ×2 (09:20→17:27)
--- NOTE | 2025-04-05 11:00 | PC.NURSE ---
Pt wound / laceration on foot cleaned w/ x1 saline syringe and neosporin was applied. The wound was covered w/ a 4x4 Optifoam dressing and nonadhesive gauze, the dressing was wrapped with foam tape to secure placement. Pt tolerated dressing change well. Dr. Carlos gave a verbal order for a one time tetanus shot. Pt provided with a clean pair of socks and pt is now sitting on his bed.
--- NOTE | 2025-04-05 11:43 | W.PM.NPUPNS ---
Subjective NPU Subjective: Patient is a 34 year old white male presents on with depression and anxiety with reports of homelessness and suicidal ideation. The patient had reported feeling calmer. He reported no side effects from his medication regimen other than some excessive sweating at night. He had reported feeling more relaxed. He was pleasant and cooperative on the milieu. He had reported adequate sleep. He had reported chronic struggles with homelessness. He had reported no cravings for any drugs or alcohol. He reports optimism of considering sobriety at a mini based program in [place]. Mental Status Exam MSE Comments: This is a well-nourished male dressed in hospital scrubs with limited grooming and good eye contact. There were numerous abrasions and scratches on his body that appeared to be healing. Dressing was around right foot from laceration was healing well. There was no evidence of any abnormal involuntary motor movements tics or tremors appreciated. There was no evidence of psychomotor agitation or psychomotor retardation. He was pleasant and cooperative on interview. He appeared less guarded. His speech was normal in rate, rhythm, and prosody. His mood was described as relaxed. His affect was euthymic. His thought process was linear but superficial. His thought content revealed no suicidal ideation and no homicidal ideation. He did not appear to be responding to internal stimuli. There was no evidence of delusional thinking. He denied any auditory or visual hallucinations. His attention span appeared fair. His insight is limited. His judgment is limited but improving. His impulse control appeared limited. He was alert and oriented to person, place, and time. Vitals/I&O/Wt Last Vital Signs Temp 97.8 F 04/05/25 06:00 Pulse 69 04/05/25 06:00 Resp 18 04/05/25 06:00 BP 105/55 04/05/25 06:00 Pulse Ox 98 04/05/25 06:00 O2 Del Method Room Air 04/05/25 06:00 Weight last 48 hrs Weight 89.074 kg Data NPU 04/02/25 09:10 04/02/25 09:10 A&P Assessment and plan 1. Impulse control disorder: 2. Anxiety disorder, unspecified: 3. Antisocial personality disorder: 4. Drug-induced psychotic disorder: 5. Cannabis use disorder: 6. Depression, unspecified: Plan: This is a 34-year-old white male with a significant history of impulsivity and substance use along with antisocial traits who presented to the hospital on a 96-hour hold after allegedly jumping off bridge with suicidal ideation. 1. Continue paxil at 30mg at night and continue klonopin .5mg bid. 2. Initiate 15 minute checks for safety. 3. Encourage individual, group and milieu therapies. 4. Encourage sober living treatment after discharge at the highest level of care to which he is willing to commit. 5. We will monitor for safety for consideration of early discontinuation of the 96-hour hold. Tetanus shot today. Patient likely to benefit from halfway or mini based placement to help with sobriety and vocation. PDMP PDMP Reviewed: Not Reviewed Involuntary Hold Information Hold Status: Legal Status: 96 Hour Hold Date/Time Hold Expires: 04/09/2025 @ 0930 96 Hour Hold: 96 Hour Involuntary Admission: Yes Attestations NPU Medical Necessity Statement*: Inpatient hospitalization is medically necessary and the clinically appropriate intervention at this time. We will monitor medication to make changes as indicated. The patient's likely length of stay is 3 to 5 days. Coding Level of Care Code Acute Code for [facility] Fwd Diagnoses Impulse control disorder F63.9 Anxiety disorder, unspecified F41.9 Antisocial personality disorder F60.2 Drug-induced psychotic disorder F19.959 Cannabis use disorder F12.90 Depression, unspecified F32.A
[2025-04-05] MEDS: tetanus-diphtheria tox (adult) 0.5 mL SDV IM (11:53)
[2025-04-05 13:48] VITALS: BP 150/84; PULSE 116; RESP 17; O2SAT 97
[2025-04-05 19:55] VITALS: BP 150/81; PULSE 111; RESP 18; O2SAT 97
[2025-04-06 05:38] VITALS: BP 124/76; PULSE 77; RESP 16; TEMP 36.2; O2SAT 100
--- NOTE | 2025-04-06 13:39 | P.NPUDS_ITS ---
Diagnoses at Discharge Discharge Diagnosis 1. Impulse control disorder: 2. Anxiety disorder, unspecified: 3. Antisocial personality disorder: 4. Cannabis use disorder: 5. Depression, unspecified: Reason for Visit Reason for Visit: SI Brief History: History of Present Illness Eric Ramsay is a 34 year old male who presented to the emergency department with complaints of having depression and suicidal ideation. Patient had reported that he had jumped off of a bridge 40 feet high in an attempt to harm himself. He had complained of bilateral foot pain. The patient was a poor historian with a limited willingness to engage on interview. He had reported that he had problems with depression and anxiety. He had denied any recent legal troubles despite there being confirmation that he had been in car serrated for a few days and released approximately 2 days ago. He reports that he has problems with anxiety. He reports having intermittent problems with suicidal ideation and describes having problems with being impulsive. He reports no current drug use other than marijuana. He reports that he has problems with memory. He has reported that he had an argument with his girlfriend and reports that he has been homeless for several days. He denies any auditory or visual hallucinations. He had reported previous attempts to try to harm himself including attempts of previously trying to hang himself. Previous records had supported a history of methamphetamine use but the patient reports that he has been sober off of methamphetamines and alcohol for many months. Patient denies any prior history of psychosis. He reports no active legal problems. He reports no change in appetite. He denies any feelings of hopelessness or worthlessness. He reports that he had had an argument with his girlfriend that ultimately led the patient to jump off of a bridge. The patient's foot x-ray was negative for any fractures. He reports that he has been homeless for several weeks but was unable to provide any clear details regarding why he had been homeless. He had reported a past history of panic attacks but did not elaborate on any problems with anxiety otherwise. He denied any manic symptoms. Psychiatric history: He reports a history of multiple inpatient hospitalizations for suicide attempts and suicidal ideation. He had reported that he was receiving his medications from an outpatient provider in [facility]. Substance abuse history: The patient denies any use of illicit substances. Previous records indicate a history of methamphetamine abuse. He has reported routine use of marijuana. Medical history: TTP Allergies: nkda Surgeries: none Medications: klonopin .5mg bid, Paxil 20mg at night Legal History: The patient minimizes any legal history although there has been some evidence of him being placed in residential at least a few times. Family psychiatric history: Denied other than addiction on both sides of the family. Psychosocial history: Patient was raised in [place] and states that he was in foster care by the age of 11 after and both of his parents have been incarcerated secondary to substance abuse related issues. He had minimized any history of childhood trauma. He states that he had graduated from high school. He has never been and has no children. He reports that he is currently homeless and unemployed. 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 Excerpt from NPU Discharge Summary from 03/07/2022 below: Discharge Diagnosis (1) Impulse control disorder: Status: Acute (2) Antisocial personality disorder: Status: Acute (3) Methamphetamine use disorder, severe : Status: Resolved (4) Acute psychosis: Status: Resolved (5) Drug-induced psychotic disorder: Status: Resolved (6) Chronic schizoaffective disorder: Status: Chronic (7) Cannabis use disorder: Status: Acute Reason for Visit suicidal ideation Brief History: Eric Ramsay is a 31 year old male who presented to the ED with the following report: Chief Complaint: Psychiatric Symptoms Stated Complaint: general Time Seen by Provider: 03/02/22 01:03 Source: patient and police Mode of arrival: other (police) Limitations: no limitations History of Present Illness:??31-year-old male brought here by police for acute psychosis.? Patient was trying to break into cars in a house tonight that he thought was his but was not.? Patient appears to be under the influence of methamphetamine does have a history of drug abuse.? Patient has flight of ideas here are very pressured speech and makes no sense when he is speaking.? He denies any injuries no other medical complaints at this time he is not suicidal or homicidal Associated symptoms: Reports visual hallucinations and delusions. He was admitted to the neuropsychiatric unit for definitive treatment of those issues.? He presents today continuing the general gestalt of his first hours of admission and emergency room time with irritability and lack of willingness to engage.? Very entitled and narcissistic as he sat down in his room and tries to convince the nurses that he is incapable of getting things himself tried having brought to him and suggesting that there is not a problem.? I attempted to engage noting that he had been on this unit back in April of last year and he endorsed that he did not recall the events of that admission.? Discussed with him that he is on a 96-hour hold which reports he felt was unfair to justified in a attempt by for the police to prevent him from establishing that they are corrected.? I explained to him the process by which the 96-hour hold gives discharge especially with going to be before their hold is up.? He continued not to engage with them as I was leaving the room he suggested a daily he should start his old medication which include Klonopin and Soma.? Discussed the fact that we would review his history and see if previous medications would be appropriate. Per his 04/09/2021 [facility] inpatient psychiatric evaluation: History of Present Illness Eric Ramsay is a 30 year old male with schizoaffective disorder who has had recent depression with passive suicidal ideation after his girlfriend kicked him out of their RV.? The ED note states: [30]yo patient w/ hx of depression and bipolar disorder BIBA for acute suicidal ideation. Patient was kicked out of RV by his girlfriend. He has been living in the [facility] since. Patient reports he lost os his will to live. Denies any suicidal plans. On arrival, the patient is AAOx3 and cooperative with my evaluation. No focal complaints of chest pain, shortness of breath, palpitations, N/V, focal GI/ complaints. +SI currently. No complaints of hallucinations. The patient says that he has been depressed off and on over the last few months, each time that he and his girlfriend have a fight.? He rates his average severity of depression as 2/10 in severity.? He said he became depressed in the past few days when his girlfriend and he drove to [place] to see one of her friends, but she kicked him out of the car.? He denies having felt suicidal.? He does not feel he would be better off .? He says he has never tried to kill himself.? He says he feels hopeful about the future, because it has a lot of possibilities. ? He is feeling good about himself and feels that he can make things happen, i.e., he does not feel helpless.? He said he wanted to come into the hospital a few hours ago, but now that he has had a chance to take a nap and eat a sandwich, he is feeling much better.? He has talked with his mother about staying with her in [place], [place].? She is willing for him to stay there.? He feels he can be safe at home and he wants to leave.? His plan is to go to work tomorrow and reconnect with his providers there. The patient denies auditory and visual hallucinations and says he has no paranoia or ideas of persecution.? He denies using alcohol and drugs and says he smokes about 1 pack of cigarettes per week.? He says he has been hospitalized here before several times.? It looks like his last admission was 08/27/2017, and the note from that visit states: Mr. Ramsay is a 26-year-old male with a previous history of schizoaffective disorder bipolar type, who presented to the [facility] ED with a complaint of suicidal ideation, along with worsening symptoms of depression, and agitation.? He denied experiencing hallucinations.? To admit to experiencing increased anxiety and sleep difficulties.? Patient has not taking his med ications for the past week as reports that they were stolen.? He presented with suicidal thoughts with a plan to hang himself.? His symptom presentation was described as moderate. 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 UDS +THC.? As he presents today, he states that he essentially came to the hospital because he didn't have his meds. Would not be more specific about this. Reports some depressed mood, but denies suicidal ideation. No symptoms consistent with angelica, hypomania, or psychosis. Slept well last night. He is actually the most interactive I've seen in months. Psychiatric history: As above. Substance use history: As above. Family history: Patient denies mental health or addiction issues on either side of the family and denies suicide attempts or completions in the family. Psychosocial history: The patient says he grew up and has lived most of his life in [place].? He says he graduated from high school.? He has never been or had kids.? 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 Legal history:? No legal difficulties. Medical history:? Denies any significant medical history. Hospital Course Hospital Course During the hospitalization, patient had routine laboratory studies which were within normal limits except for few outliers.? Additionally there was a general medical evaluation which was also within normal limits and revealed no new acute processes. Discharge Summary: At the time of discharge, lethality was denied and psychosis was resolving.? Mood and anxiety were well managed.? Patient endorsed a plan to avoid all drugs of abuse and follow-up with the aftercare recommendations of the treatment team.? Patient was evaluated and deemed to be absent credible lethality, and had achieved the maximum benefit from an inpatient hospitalization, so was discharged as he refused medications throughout the hospital stay. Hospital Course Hospital Course Patient was restarted on his Klonopin and titrated up to 0.5 mg twice a day along with Paxil which was increased to 30 mg at night prior to his discharge. He had initially requested to reside in the local area and stay in a nursing home but ultimately decided that he would rather return to the the comforts of his area in [place] where he would continue to stay with his girlfriend. During the hospitalization, the patient had routine laboratory studies which were within normal limits except for a few outliers.? Additionally, there was a general medical evaluation which was also within normal limits and revealed no new acute processes.? At the time of discharge, lethality was denied and psychosis was resolving.? Mood and anxiety were well managed.? The patient endorsed a plan to avoid all drugs of abuse and follow up with the aftercare recommendations of the treatment team.? The patient was evaluated and deemed to be absent credible lethality and had achieved the maximum benefit from an inpatient hospitalization, and so was discharged. ? Involuntary Hold Information Hold Status: Legal Status: 96 Hour Hold Date/Time Hold Expires: 04/09/2025 @ 0930 96 Hour Hold: 96 Hour Involuntary Admission: Yes Mental Status Exam MSE Comments: This is a well-nourished male dressed in hospital scrubs with limited grooming and good eye contact. There were numerous abrasions and scratches on his body that appeared to be healing. Dressing was around right foot from laceration was healing well. There was no evidence of any abnormal involuntary motor movements tics or tremors appreciated. There was no evidence of psychomotor agitation or psychomotor retardation. He was pleasant and cooperative on interview. He appeared less guarded. His speech was normal in rate, rhythm, and prosody. His mood was described as good. His affect was euthymic. His thought process was linear but superficial. His thought content revealed no suicidal ideation and no homicidal ideation. He did not appear to be responding to internal stimuli. There was no evidence of delusional thinking. He denied any auditory or visual hallucinations. His attention span appeared fair. His insight is limited. His judgment is fair. His impulse control appe ared fair. He was alert and oriented to person, place, and time. Discharge Data Studies Completed and Pending: Completed Studies During Hospitalization Category Date Time Status XR foot LT min 3V * [id number] Stat Exams 04/02/25 09:09 Completed XR foot RT min 3V * [id number] Stat Exams 04/02/25 09:09 Completed Radiology Impressions Foot X-Ray 04/02/25 09:09 IMPRESSION: 1. No acute fracture identified. Laboratory Results WBC 6.21 10^3/uL (3.2 9-11.43) 04/02/25 09:10 RBC 4.40 10^6/uL (3.8 5-5.65) 04/02/25 09:10 Hgb 13.80 g/dL (11.27 -16.99) 04/02/25 09:10 Hct 42.4 % (37-53) 04/02/25 09:10 MCV 96.4 fl (82-101) 04/02/25 09:10 MCH 31.4 pg (27-33) 04/02/25 09:10 MCHC 32.5 g/dL (30-55) 04/02/25 09:10 RDW 11.9 % (12.1-15.1 ) L 04/02/25 09:10 Plt Count 193 10^3/cmm (157 -399) 04/02/25 09:10 MPV 9.9 fL (7.4-10.4) 04/02/25 09:10 Neut % (Auto) 66.2 % 04/02/25 09:10 Lymph % (Auto) 21.1 % 04/02/25 09:10 [place] % (Auto) 8.4 % 04/02/25 09:10 Eos % (Auto) 3.1 % 04/02/25 09:10 Baso % (Auto) 1.0 % 04/02/25 09:10 Neut # (Auto) 4.12 10^3/uL (1.8 -7.7) 04/02/25 09:10 Lymph # (Auto) 1.3 10^3/uL (0.8- 4.8) 04/02/25 09:10 [place] # (Auto) 0.5 10^3/uL (0.2- 0.9) 04/02/25 09:10 Eos # (Auto) 0.2 10^3/uL (0.0- 0.8) 04/02/25 09:10 Baso # (Auto) 0.1 10^3/uL (0.0- 0.1) 04/02/25 09:10 Nucleated RBC % (a uto) 0 % 04/02/25 09:10 Nucleated RBCs # 0.0 /100WBC 04/02/25 09:10 Sodium 144 mmol/L (136-1 45) 04/02/25 09:10 Potassium 4.6 mmol/L (3.5-5 .1) 04/02/25 09:10 Chloride 110 mmol/L (98-10 7) H 04/02/25 09:10 Carbon Dioxide 25 mmol/L (22-29) 04/02/25 09:10 Anion Gap 13.6 (5-19) 04/02/25 09:10 BUN 18 mg/dL (6-20) 04/02/25 09:10 Creatinine 0.9 mg/dL (0.7-1. 2) 04/02/25 09:10 GFR Calculation 96.6 mL/min (90-1 30) 04/02/25 09:10 Glucose 116 mg/dL (65-115 ) H 04/02/25 09:10 Calculated Osmolal ity 301 mOsm/kg (285- 295) H 04/02/25 09:10 Calcium 8.2 mg/dL (8.5-10 .5) L 04/02/25 09:10 Total Bilirubin 0.4 mg/dL (0.15-1 .2) 04/02/25 09:10 AST 56 U/L (0-40) H 04/02/25 09:10 ALT 45 U/L (0-41) H 04/02/25 09:10 Alkaline Phosphata se 77 U/L (40-130) 04/02/25 09:10 Total Protein 6.2 g/dL (6.6-8.7 ) L 04/02/25 09:10 Albumin 3.6 g/dL (3.5-5.2 ) 04/02/25 09:10 Globulin 2.6 g/dL (1.3-4.6 ) 04/02/25 09:10 Salicylates 1.6 mg/dL (3-10) L 04/02/25 09:10 Urine Opiates Scre en Negative ng/mL (N egative) 04/02/25 08:44 Acetaminophen < 5.0 ug/mL (10-3 0) L 04/02/25 09:10 Ur Barbiturates Sc reen Negative ng/mL (N egative) 04/02/25 08:44 Ur Phencyclidine S crn Negative ng/mL (N egative) 04/02/25 08:44 Ur Amphetamines Sc reen Negative ng/mL (N egative) 04/02/25 08:44 U Benzodiazepines Scrn Positive ng/mL (N egative) H 04/02/25 08:44 Urine Cocaine Scre en Negative ng/mL (N egative) 04/02/25 08:44 U Marijuana (THC) Screen Positive ng/mL (N egative) H 04/02/25 08:44 Ethyl Alcohol < 10 mg/dL (0-10) 04/02/25 09:10 Vitals: Last Vital Signs Temp 97.2 F L 04/06/25 05:38 Pulse 77 04/06/25 05:38 Resp 16 04/06/25 05:38 BP 124/76 04/06/25 05:38 Pulse Ox 100 04/06/25 05:38 O2 Del Method Room Air 04/06/25 05:38 Discharge Plan Discharge Patient Disposition: Home Condition: Stable Prescriptions: New clonazepam 0.5 mg Tablet 0.5 mg PO 1500,2000 Qty: 60 0RF paroxetine HCl 30 mg tablet 30 mg PO 2100 30 Days Qty: 30 1RF trazodone 50 mg Tablet 50 mg PO BEDTIME PRN (Reason: Sleep) 30 Days Qty: 30 1RF clonazepam [Klonopin] 0.5 mg tablet 0.5 mg PO BID Qty: 60 1RF Discontinued clonazepam [Klonopin] 0.5 mg Tablet 0.25 - 0.5 mg PO BID PRN (Reason: Panic Attack(S)) paroxetine HCl [Paxil] 20 mg Tablet 20 mg PO BEDTIME Discharge Order = DC NOW: Discharge Order (Routine); Ordered 04/06/25 Ordered By: Reyes Carlos Referrals: [facility] Dr. Michael Ferrer MD [Other] - 04/14/25 1:15 pm Referral Note: Follow up. Discharge Diet: Usual diet Discharge Activity: Resume usual activity Patient Instructions: Clonazepam (By mouth), Trazodone (By mouth), Paroxetine (By mouth), Depression (DC), Anxiety (DC), Suicide Prevention (DC), Opioid Safety, Pain Management, Patient Portal & [place] Instructions Discharge Attestations NPU Time Spent in Discharge Care*: less than 30 min Specific Discharge Activities: Specific discharge activities: educating patient, discussing with disability case manager/social workers/dc planners and documenting/other paperwork Status at Discharge: Cognitive status at discharge: cognitively intact , Behavioral status at discharge: cooperative , Coding Level of Care Code Acute Code for [facility] Fwd Diagnoses Impulse control disorder F63.9 Anxiety disorder, unspecified F41.9 Antisocial personality disorder F60.2 Drug-induced psychotic disorder F19.959 Cannabis use disorder F12.90 Depression, unspecified F32.A
[2025-04-06 13:43] VITALS: BP 124/76; PULSE 77; RESP 16; TEMP 36.2; O2SAT 100
[2025-04-06 14:00] VITALS: BP 127/62; PULSE 90; RESP 20; TEMP 37.2; O2SAT 99
--- NOTE | 2025-04-06 17:13 | PC.NURSE ---
Dr. Carlos approved for the pt to receive his Klonopin 0.25 just before discharge from the unit.
== END 2025-04-06 15:15 | disposition home or self-care (01) | DRG 881 ==
LOC: ER 09:52 → NP 11:40
PROVIDERS: Admitting Provider Psychiatry & Neurology Psychiatry; Emergency Provider Physician Assistant; Visit Provider Psychiatry & Neurology Psychiatry
DX: F32.A Depression, unspecified (principal); R45.851 Suicidal ideations; Z59.00 Homelessness unspecified; F60.2 Antisocial personality disorder; F63.9 Impulse disorder, unspecified; F12.90 Cannabis use, unspecified, uncomplicated; Z91.51 Personal history of suicidal behavior; F15.11 Other stimulant abuse, in remission; F17.200 Nicotine dependence, unspecified, uncomplicated; F41.9 Anxiety disorder, unspecified
CPT/HCPCS: 36415; 73630; 80053; 80306; 80307; 85025; 90471; 90714; 97150; 97165; 99285; J9999